=== PATIENT | male | born 1935 | race African-American/Black ===

== ENCOUNTER 2018-01-01 14:17 | Inpatient (IN) | payer OTHER ==
--- NOTE | 2018-01-01 15:39 | RAD REPORT ---
EXAM DESCRIPTION: CT - Head Brain Wo Cont - 01/01/2018 3:30 pm CLINICAL HISTORY: MENTAL STATUS CHANGE Drowsiness COMPARISON: Brain Wo Cont dated 11/02/2015 TECHNIQUE: All CT scans are performed using dose optimization technique as appropriate and may inclu de automated exposure control or mA/KV adjustment according to patient size. FINDINGS: No intracranial hemorrhage, hydrocephalus or extra-axial fluid collection.Moderate conflue nt T2/FLAIR hyperintensity in the periventricular and deep white matter is present compatible with ch ronic microvascular ischemic changes.No areas of brain edema or evidence of midline shift. The paranasal sinuses and mastoids are clear. The calvarium is intact. Vertebral arteries are calcifi ed. IMPRESSION: No acute intracranial abnormality.
[2018-01-01 16:03] LABS: Absolute Lymphocytes (CBC) 1.1 K/uL (0.7-4.9); Absolute Monocytes 0.5 K/uL (0.1-1.3); Absolute Neutrophil 2.1 K/uL (1.8-8.0); Basophils % 0.4 % (0-1.3); Eosinophils % 2.8 % (0-4.4); Hematocrit 35.9 % (39.6-49.0); Lymphocytes % 28.7 % (15.3-44.8); MCV 90.1 fL (80-100); MPV 10.5 fL (7.6-11.3); Monocytes % 12.1 % (3.3-12.3); RBC Red Blood Cell Count 3.98 M/uL (4.33-5.43)
[2018-01-01 16:11] LABS: Protime INR 1.21
[2018-01-01 16:28] LABS: ALT/SGPT 16 U/L (12-78); AST/SGOT 26 U/L (15-37); Albumin 3.7 g/dL (3.4-5.0); Alkaline Phosphatase 50 U/L (45-117); BUN Blood Urea Nitrogen 18 mg/dL (7-18); Bicarbonate 29 mmol/L (21-32); Bilirubin Direct 0.3 mg/dL (0-0.2); Bilirubin Total 0.7 mg/dL (0.2-1.0); CKMB Creatine Kinase MB < 1.0 ng/mL (0.3-3.6); Creatine Phosphokinase 105 U/L (39-308); Glucose Level 82 mg/dL (74-106); Lipase 257 U/L (73-393); Sodium Level 141 mmol/L (136-145); Troponin (Emerg Dept Use Only) 0.02 ng/mL (0.0-0.045)
[2018-01-01 16:49] LABS: Urine Bacteria LOADED /HPF (NONE SEEN); Urine RBC NONE SEEN /HPF (NONE SEEN)
[2018-01-01 16:50] LABS: Urine Culture Reflex Order REFLEXED
[2018-01-01] MEDS ORDERED: CEFTRIAXONE/SWI 1gm 1 GM/10 ML SYR ONE (16:54)
[2018-01-01] MEDS ORDERED: VANCOMYCIN 1 GM/250 ML BAG ONE (16:54)
[2018-01-01] MEDS ORDERED: NA CHLORIDE 0.9% 1,000 ML ONE ×2 (16:55→18:50)
--- NOTE | 2018-01-01 17:07 | RAD REPORT ---
EXAM DESCRIPTION: RAD - Chest Single View - 01/01/2018 4:48 pm CLINICAL HISTORY: Cough, altered mental status COMPARISON: None. TECHNIQUE: AP portable chest image was obtained 1600 hours . FINDINGS: Scattered granulomatous calcifications are present. No acute pneumonia seen. There is lina ed left hemidiaphragm elevation. This limits left base assessment. Heart size is normal. No evidence for mediastinal or hilar mass on portable imaging. Small masses could be obscured. Specifically, an A P window mass could be obscured given the left hemidiaphragm elevation. No measurable pleural effusio n and no pneumothorax. No acute bony abnormality seen. No acute aortic findings suspected. IMPRESSION: No focal lung parenchymal process. Left base assessment is limited due to marked left he midiaphragm elevation.
[2018-01-01 17:08] LABS: Urine Blood TRACE (NEG); Urine Glucose NEGATIVE (NEG); Urine Protein 1+ (NEG); Urine Specific Gravity 1.025 (1.005-1.030); Urine pH 6.5 (5.0-7.0)
--- NOTE | 2018-01-01 17:08 | ER ---
Nurse's Notes [facility] Name: Sachin Rios Age: 82 yrs Sex: Male : 1935 Arrival Date: 01/01/2018 Time: 14:22 Bed 26 Private MD: Diagnosis: Altered mental status, unspecified;Cystitis, unspecified without hematuria Presentation: 01/01 14:22 Presenting complaint: EMS states: family noticed patient became very confused on kr2 Monday about where he was and who was who. Today he did not recognize his son, they called his doctor and the doctor said to have him brought to the hospital because he made have had a stroke Monday. Transition of care: patient was not received from another setting of care. Onset of symptoms was December 30, 2017. Risk Assessment: Do you want to hurt yourself or someone else? Patient reports no desire to harm self or others. Initial Sepsis Screen: Does the patient meet any 2 criteria? No. Patient's initial sepsis screen is negative. Does the patient have a suspected source of infection? No. Patient's initial sepsis screen is negative. Care prior to arrival: None. 14:22 Method Of Arrival: EMS kr2 14:22 Acuity: VANITA 3 kr2 Triage Assessment: 14:26 General: Appears in no apparent distress. comfortable, slender, Behavior is calm, kr2 quiet. Pain: Denies pain. EENT: Oral mucosa is moist. Neuro: Level of Consciousness is awake, Oriented to Patient only responds to name but will not answer questions or follow commands. Cardiovascular: Patient's skin is warm and dry. Respiratory: Airway is patent Respiratory effort is even, unlabored, Respiratory pattern is regular, symmetrical. GI: Abdomen is flat, non-distended. Derm: Skin is intact, Skin is pink, warm \T\ dry. Historical: - Allergies: 14:26 No Known Allergies; kr2 - Home Meds: 14: Unable to obtain [Active]; kr2 - PMHx: 14: Diabetes; Cataracts; Hypertension; kr2 - PSHx: 14:26 cataract; kr2 - Immunization history:: Adult Immunizations unknown. - Social history:: Smoking status: unknown Patient/guardian denies using alcohol, street drugs, The patient lives with family. - Ebola Screening: : No symptoms or risks identified at this time. - Family history:: not pertinent. Screenin:30 Abuse screen: Denies threats or abuse. Denies injuries from another. Nutritional kr2 screening: No deficits noted. Tuberculosis screening: No symptoms or risk factors identified. Fall Risk Ambulatory Aid- Crutches/Cane/Walker (15 pts). Mental Status- Overestimates/Forgets Limitations (15 pts.). Assessment: 14:30 Reassessment: Patient appears in no apparent distress at this time. See triage kr2 assessment. 15:30 Reassessment: Patient appears in no apparent distress at this time. Patient and/or kr2 family updated on plan of care and expected duration. Pain level reassessed. Family at bedside. 16:30 Reassessment: Patient appears in no apparent distress at this time. Patient and/or kr2 family updated on plan of care and expected duration. Pain level reassessed. Cleaned patient of incontinence. Skin intact. 17:55 Reassessment: Patient appears in no apparent distress at this time. Patient and/or kr2 family updated on plan of care and expected duration. Pain level reassessed. Patient more alert, oriented only to person. Patient cleaned of incontinence. Patient denies pain at this time. 18:30 Reassessment: Patient appears in no apparent distress at this time. Patient and/or kr2 family updated on plan of care and expected duration. Pain level reassessed. Patient more alert, confused to surroundings, attempted to get out of bed, reoriented. Patient calmed and remained in bed. Family returned to bedside. 19:30 Reassessment: Patient appears in no apparent distress at this time. Patient and/or kr2 family updated on plan of care and expected duration. Pain level reassessed. Cleaned of incontinence Patient denies pain at this time. Vital Signs: 14:29 BP 184 / 81; Pulse 54; Resp 17; Temp 97.8; Pulse Ox 99% ; Pain 0/10; kr2 15:30 BP 188 / 80; Pulse 60; Resp 21; Pulse Ox 99% on R/A; kr2 16:55 Weight 70.31 kg; Height 5 ft. 7 in. (170.18 cm); kr2 17:31 BP 178 / 84; Pulse 97; Resp 20; Temp 97.9; Pulse Ox 99% on R/A; kr2 18:30 BP 195 / 80; Pulse 70; Resp 22; Pulse Ox 100% on R/A; kr2 19:57 BP 175 / 75; Pulse 68; Resp 19; Temp 98; Pulse Ox 100% on R/A; kr2 16:55 Body Mass Index 24.28 (70.31 kg, 170.18 cm) kr2 ED Course: 14:22 Patient arrived in ED. kr2 14:22 Anson Villanueva MD is Attending Physician. ma2 14:24 Triage completed. kr2 14:31 Arm band placed on right wrist. kr2 14:31 Patient has correct armband on for positive identification. Placed in gown. Bed in low kr2 position. Call light in reach. Side rails up X2. bus monitor on. Pulse ox on. NIBP on. Noise minimized. Warm blanket given. Head of bed elevated. 15:30 CT Head Brain wo Cont In Process Unspecified. EDMS 15:33 Brielle Mccullough, LUISA is Primary Nurse. kr2 15:45 First set of blood cultures drawn by me. Inserted saline lock: 20 gauge in right kr2 forearm, using aseptic technique. Blood collected. 16:00 Second set of blood cultures drawn by me. kr2 16:35 Straight cath inserted, using sterile technique, 15 Fr, specimen obtained and sent to kr2 lab Returned dark zoe urine, odor noted. 16:48 Chest Single View XRAY In Process Unspecified. EDMS 17:07 Letitia Tai MD is Hospitalizing Provider. ma2 20:01 No provider procedures requiring assistance completed. Patient admitted, IV remains in kr2 place. Administered Medications: 16:54 Drug: Rocephin 1 grams Route: IV; Rate: calculated rate; Site: right forearm; kr2 16:58 Follow up: Response: No adverse reaction; IV Status: Completed infusion kr2 16:59 Drug: vancoMYCIN 1 grams Route: IVPB; Infused Over: 2 hrs; Site: right forearm; kr2 19:59 Follow up: Response: No adverse reaction; IV Status: Completed infusion kr2 17:26 Drug: NS 0.9% (30 ml/kg) 30 ml/kg Route: IV; Rate: bolus; Site: right forearm; kr2 19:59 Follow up: Response: No adverse reaction; IV Status: Completed infusion kr2 Outcome: 17:08 Decision to Hospitalize by Provider. ma2 20:02 Admitted to Tele accompanied by tech, family with patient, via stretcher, room 425, kr2 with chart, Report called to Olga 20:02 Condition: stable 20:04 Patient left the ED. kr2 Signatures: Dispatcher [employer] Brielle Collins RN RN kr2 Anson Villanueva MD MD ma2 Corrections: (The following items were deleted from the chart) 17:55 17:31 Pulse 97bpm; Resp 20bpm; Pulse Ox 99% RA; kr2 kr2 17:57 17:31 BP 178 / 84; Pulse 97bpm; Resp 20bpm; Pulse Ox 99% RA; kr2 kr2
--- NOTE | 2018-01-01 17:08 | EDPHYS ---
Physician Documentation [facility] Name: Sachin Rios Age: 82 yrs Sex: Male : 1935 Arrival Date: 01/01/2018 Time: 14:22 Bed 26 Private MD: ED Physician Anson Villanueva HPI: 01/01 15:35 This 82 yrs old Black Male presents to ER via EMS with complaints of Altered Mental ma2 Status. 15:35 The patient presents with confusion, decreased mental status, decreased responsiveness, ma2 disorientation. Onset: The symptoms/episode began/occurred gradually, 2 day(s) ago. Possible causes: CVA or TIA, drug use, head injury, low blood sugar, sepsis. Associated signs and symptoms: Pertinent negatives: abdominal pain, agitation, blurred vision, chest pain, combativeness, dizziness, headache. Current symptoms: In the emergency department the patient's symptoms are unchanged from the initial presentation. The patient has not experienced similar symptoms in the past. Historical: - Allergies: 14:26 No Known Allergies; kr2 - Home Meds: 14:26 Unable to obtain [Active]; kr2 - PMHx: 14:26 Diabetes; Cataracts; Hypertension; kr2 - PSHx: 14:26 cataract; kr2 - Immunization history:: Adult Immunizations unknown. - Social history:: Smoking status: unknown Patient/guardian denies using alcohol, street drugs, The patient lives with family. - Ebola Screening: : No symptoms or risks identified at this time. - Family history:: not pertinent. ROS: 15:35 Unable to obtain ROS due to altered mental status. ma2 17:08 ENT: Negative for injury, pain, and discharge. ma2 Exam: 15:35 Constitutional: This is a well developed, well nourished patient who is awake, alert, ma2 and in no acute distress. Head/Face: Normocephalic, atraumatic. Eyes: Pupils equal round and reactive to light, extra-ocular motions intact. Lids and lashes normal. Conjunctiva and sclera are non-icteric and not injected. Cornea within normal limits. Periorbital areas with no swelling, redness, or edema. Neck: Trachea midline, no thyromegaly or masses palpated, and no cervical lymphadenopathy. Supple, full range of motion without nuchal rigidity, or vertebral point tenderness. No Meningismus. Chest/axilla: Normal chest wall appearance and motion. Nontender with no deformity. No lesions are appreciated. Cardiovascular: Regular rate and rhythm with a normal S1 and S2. No gallops, murmurs, or rubs. Normal PMI, no JVD. No pulse deficits. Respiratory: Lungs have equal breath sounds bilaterally, clear to auscultation and percussion. No rales, rhonchi or wheezes noted. No increased work of breathing, no retractions or nasal flaring. Abdomen/GI: Soft, non-tender, with normal bowel sounds. No distension or tympany. No guarding or rebound. No evidence of tenderness throughout. 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 Vital Signs: 14:29 BP 184 / 81; Pulse 54; Resp 17; Temp 97.8; Pulse Ox 99% ; Pain 0/10; kr2 15:30 BP 188 / 80; Pulse 60; Resp 21; Pulse Ox 99% on R/A; kr2 16:55 Weight 70.31 kg; Height 5 ft. 7 in. (170.18 cm); kr2 17:31 BP 178 / 84; Pulse 97; Resp 20; Temp 97.9; Pulse Ox 99% on R/A; kr2 18:30 BP 195 / 80; Pulse 70; Resp 22; Pulse Ox 100% on R/A; kr2 19:57 BP 175 / 75; Pulse 68; Resp 19; Temp 98; Pulse Ox 100% on R/A; kr2 16:55 Body Mass Index 24.28 (70.31 kg, 170.18 cm) kr2 MDM: 14:22 Patient medically screened. ma2 15:35 Differential Diagnosis: CVA, electrolyte abnormality, hypoglycemia, intracranial bleed, ma2 overdose, pneumonia, TIA, UTI, volume depletion. 17:04 Data reviewed: vital signs, nurses notes, diagnostic data from outside facility, lab ma2 test result(s), radiologic studies. Counseling: I had a detailed discussion with the patient and/or guardian regarding: the historical points, exam findings, and any diagnostic results supporting the discharge/admit diagnosis, the presence of at least one elevated blood pressure reading (>120/80) during this emergency department visit, the need for further work-up and treatment in the hospital. Response to treatment: the patient's symptoms have mildly improved after treatment. ED course: has UTI with delirium, CTH with no acute changes VS wnl, received abx and IVF . ED course: his PCP does not admit to this hospital. 01/01 15:11 Order name: Basic Metabolic Panel [facility] 01/01 15:11 Order name: Blood Culture Adult (2) [facility] 01/01 15:11 Order name: CBC with Diff [facility] 01/01 15:11 Order name: Ckmb [facility] 01/01 15:11 Order name: CPK [facility] 01/01 15:11 Order name: Lactate [facility] 01/01 15:11 Order name: LFT's; Complete Time: 16:33 [facility] 01/01 15:11 Order name: Lipase; Complete Time: 16:33 [facility] 01/01 15:11 Order name: Procalcitonin; Complete Time: 16:40 ma2 01/01 15:11 Order name: Protime (+inr); Complete Time: 16:17 ca2 01/01 15:11 Order name: Ptt, Activated; Complete Time: 16:17 [facility] 01/01 15:11 Order name: Troponin (emerg Dept Use Only); Complete Time: 16:33 ma2 01/01 15:11 Order name: Urine Microscopic Only; Complete Time: 17:04 ca2 01/01 15:11 Order name: Basic Metabolic Panel; Complete Time: 16:33 EDMS 01/01 15:11 Order name: Chest Single View XRAY; Complete Time: 17:11 ca2 01/01 15:11 Order name: Accucheck; Complete Time: 16:39 ca2 01/01 15:11 Order name: Cardiac monitoring; Complete Time: 16:39 ca2 01/01 15:11 Order name: EKG - Nurse/Tech; Complete Time: 16:39 ma2 01/01 15:11 Order name: Blood Culture [facility] [place] 01/01 15:11 Order name: CBC with Automated Diff; Complete Time: 16:07 EDMS 01/01 15:11 Order name: CKMB Creatine Kinase MB; Complete Time: 16:33 EDMS 01/01 15:11 Order name: Creatine Phosphokinase; Complete Time: 16:33 EDMS 01/01 15:11 Order name: Lactate; Complete Time: 16:33 EDMS 01/01 15:12 Order name: CT Head Brain wo Cont; Complete Time: 15:58 ma2 01/01 16:40 Order name: Urine Dipstick--Ancillary (enter results); Complete Time: 17:11 hb 01/01 16:52 Order name: Urine Culture EDMS 01/01 17:33 Order name: Diet Pureed; Complete Time: 17:33 kr2 01/01 15:11 Order name: IV Saline Lock - Large Bore; Complete Time: 16:39 ma2 01/01 15:11 Order name: Labs collected and sent; Complete Time: 16:39 ma2 01/01 15:11 Order name: O2 Per Protocol; Complete Time: 16:39 ma2 01/01 15:11 Order name: O2 Sat Monitoring; Complete Time: 16:38 ma2 01/01 15:11 Order name: Urine Dipstick-Ancillary (obtain specimen); Complete Time: 16:38 ma2 01/01 16:17 Order name: Straight Cath; Complete Time: 16:38 ma2 Administered Medications: 16:54 Drug: Rocephin 1 grams Route: IV; Rate: calculated rate; Site: right forearm; kr2 16:58 Follow up: Response: No adverse reaction; IV Status: Completed infusion kr2 16:59 Drug: vancoMYCIN 1 grams Route: IVPB; Infused Over: 2 hrs; Site: right forearm; kr2 19:59 Follow up: Response: No adverse reaction; IV Status: Completed infusion kr2 17:26 Drug: NS 0.9% (30 ml/kg) 30 ml/kg Route: IV; Rate: bolus; Site: right forearm; kr2 19:59 Follow up: Response: No adverse reaction; IV Status: Completed infusion kr2 Disposition: 01/01/18 17:08 Hospitalization ordered by Letitia Tai for Inpatient Admission. Preliminary diagnosis are Altered mental status, unspecified, Cystitis, unspecified without hematuria. - Bed requested for Telemetry/MedSurg (Inpatient). - Status is Inpatient Admission. kr2 - Condition is Guarded. - Problem is new. - Symptoms have improved. UTI on Admission? Yes Signatures: Dispatcher [employer] Dorene Smith RN RN dw Brielle Mccullough, LUISA RN kr2 Anson Villanueva MD MD ma2 Corrections: (The following items were deleted from the chart) 18:06 17:08 Hospitalization Ordered by Letitia Tai MD for Inpatient Admission. Preliminary dw diagnosis is Altered mental status, unspecified; Cystitis, unspecified without hematuria. Bed requested for Telemetry/MedSurg (Inpatient). Status is Inpatient Admission. Condition is Guarded. Problem is new. Symptoms have improved. UTI on Admission? Yes. ma2 20:04 18:06 01/01/2018 17:08 Hospitalization Ordered by Letitia Tai MD for Inpatient kr2 Admission. Preliminary diagnosis is Altered mental status, unspecified; Cystitis, unspecified without hematuria. Bed requested for Telemetry/MedSurg (Inpatient). Status is Inpatient Admission. Condition is Guarded. Problem is new. Symptoms have improved. UTI on Admission? Yes. dw
--- NOTE | 2018-01-01 17:35 | P.HP ---
Certification for Inpatient Patient admitted to: Inpatient With expected LOS: >2 Midnights Patient will require the following post-hospital care: None Practitioner: I am a practitioner with admitting privileges, knowledge of patient current condition, hospital course, and medical plan of care. Services: Services provided to patient in accordance with Admission requirements found in Title 42 Section 412.3 of the Code of Federal Regulations Patient History Date of Service: 01/01/18 [facility] Reason for admission: AMS History of Present Illness: 82 y/o M with H.o of HTN, DM, CVA presents to the ED with AMS. Family noticed patient having AMS since Monday where he forget where he was and did not recognize the son. It did not get any better and thus decided to come in to the ER. Pt has been also having Difficulty hearing since Monday. Denies having fever, chills, abd pain, no other associated symptoms. No similar Complains in the past. Called PCP office and advise to come to the ER to r.o stroke. In the ER was found to have UTI and thus admitted for AMS and UTI. Home medications list reviewed: Yes - Past Medical/Surgical History Has patient received pneumonia vaccine in the past: Yes Diabetic: Yes -: Diabetes -: HTN Past Surgical History: Unable to obtain - Family History Family History: Reviewed- Non-Contributory - Social History Smoking Status: Unknown if ever smoked Review of Systems 10-point ROS is otherwise unremarkable Physical Examination - Physical Exam General: Confused HEENT: Atraumatic, PERRLA, Mucous membr. moist/pink, EOMI, Sclerae nonicteric Neck: Supple, 2+ carotid pulse no bruit, No LAD, Without JVD or thyroid abnormality Respiratory: Clear to auscultation bilaterally, Normal air movement Cardiovascular: Regular rate/rhythm, Normal S1 S2 Gastrointestinal: Normal bowel sounds, No tenderness Musculoskeletal: No tenderness Integumentary: No rashes Neurological: Normal gait, Normal speech, Normal strength at 5/5 x4 extr, Normal tone, Normal affect Lymphatics: No axilla or inguinal lymphadenopathy - Studies Laboratory Data (last 24 hrs) 01/01/18 15:45: PT 14.3 H, INR 1.21, APTT 31.4 01/01/18 15:45: WBC 3.8 L, Hgb 12.0 L, Hct 35.9 L, Plt Count 121 L 01/01/18 15:45: Sodium 141, Potassium 4.0, BUN 18, Creatinine 0.90, Glucose 82, Total Bilirubin 0.7, AST 26, ALT 16, Alkaline Phosphatase 50, Lipase 257 Assessment and Plan - Problems (Diagnosis) (1) Altered mental status Current Visit: Yes Status: Acute Plan: AMS most likely 2.2 to Toxic Encephalopathy 2.2 to UTI -Head CT negative -Urine culture pending -Will also get MRI to R.O Acute Abnormality given the history of CVA in the past Qualifiers: Altered mental status type: disorientation Qualified Code(s): R41.0 - Disorientation, unspecified (2) UTI (urinary tract infection) Current Visit: Yes Status: Acute Plan: UA with UTI -Cullture pending -IV rocephin at this time -Will F.u with labs and culture in AM Qualifiers: Urinary tract infection type: acute cystitis Hematuria presence: without hematuria Qualified Code(s): N30.00 - Acute cystitis without hematuria (3) Diabetes Current Visit: Yes Status: Chronic Plan: ISS and ACHS BS check Qualifiers: Diabetes mellitus type: type 2 Diabetes mellitus terminal operations manager insulin use: without terminal operations manager use Diabetes mellitus complication status: without complication Qualified Code(s): E11.9 - Type 2 diabetes mellitus without complications (4) HTN (hypertension) Current Visit: Yes Status: Chronic Plan: Restart Home medication Qualifiers: Hypertension type: essential hypertension Qualified Code(s): I10 - Essential (primary) hypertension (5) H/O: CVA (cerebrovascular accident) Current Visit: Yes Status: Chronic Plan: Past H/o CVA with Small vessel changes -Will get MRI Discharge Plan: Other Plan to discharge in: 48 Hours - Advance Directives Does patient have a Living Will: No Does patient have a Durable POA for Healthcare: No - Code Status/Comfort Care Code Status Assessed: Yes Critical Care: No
[2018-01-01] MEDS ORDERED: ONDANSETRON 4 MG/2 ML VIAL IV PRN (20:05)
[2018-01-01] MEDS: INSULIN -REGULAR HUMAN 50 UNIT/0.5 ML ML SQ SCH (21:00)
[2018-01-02] MEDS: HYDRALAZINE HCL 20 MG/ML VIAL IV PRN ×2 (04:59→09:13)
[2018-01-02 05:47] LABS: Absolute Lymphocytes (CBC) 1.3 K/uL (0.7-4.9); Absolute Monocytes 0.6 K/uL (0.1-1.3); Absolute Neutrophil 2.3 K/uL (1.8-8.0); Basophils % 0.2 % (0-1.3); Eosinophils % 3.7 % (0-4.4); Hematocrit 33.6 % (39.6-49.0); Lymphocytes % 29.1 % (15.3-44.8); MCV 89.1 fL (80-100); MPV 10.7 fL (7.6-11.3); Monocytes % 14.2 % (3.3-12.3); RBC Red Blood Cell Count 3.77 M/uL (4.33-5.43)
[2018-01-02 06:51] LABS: Anisocytosis SLIGHT; Blood Morphology Comment NOTED (NOT SEEN); Burr Cells FEW; Hypochromasia 1+; Platelet Estimate ADEQ; Platelets, Giant NOTED; Urine White Blood Cell Casts OK
[2018-01-02] MEDS: INSULIN -REGULAR HUMAN 50 UNIT/0.5 ML ML SQ SCH ×4 (07:30→21:00)
[2018-01-02] MEDS: CEFTRIAXONE/SWI 1gm 1 GM/10 ML SYR IV SCH (08:15)
[2018-01-02 08:26] LABS: ALT/SGPT 14 U/L (12-78); AST/SGOT 23 U/L (15-37); Albumin 3.3 g/dL (3.4-5.0); Alkaline Phosphatase 47 U/L (45-117); BUN Blood Urea Nitrogen 14 mg/dL (7-18); Bicarbonate 24 mmol/L (21-32); Bilirubin Total 0.6 mg/dL (0.2-1.0); Glucose Level 82 mg/dL (74-106); Potassium 3.3 mmol/L (3.5-5.1); Protein, Total 7.2 g/dL (6.4-8.2); Sodium Level 137 mmol/L (136-145)
[2018-01-02] MEDS ORDERED: POTASSIUM CL SA 10 MEQ TAB PO ONE (08:57)
[2018-01-02] MEDS ORDERED: CEFTRIAXONE 1 GM/NS 50 ML 1 GM/50 ML BAG IV SCH (09:00)
[2018-01-02 09:18] LABS: Magnesium 1.9 mg/dL (1.8-2.4); Phosphorus 2.8 mg/dL (2.5-4.9)
[2018-01-02] MEDS: LORATADINE 10 MG TAB PO SCH (11:10)
[2018-01-02] MEDS: AMLODIPINE 5 MG TAB PO SCH (11:10)
[2018-01-02] MEDS: METOPROLOL XL 50 MG TAB PO SCH ×2 (11:11→21:15)
[2018-01-02] MEDS: ASPIRIN 81 MG CHEWABLE TABLET PO SCH (11:11)
[2018-01-02] MEDS: LOSARTAN POTASSIUM 50 MG TABLET PO SCH (11:11)
[2018-01-02 11:49] LABS: Troponin I 0.07 ng/mL (0.0-0.045)
--- NOTE | 2018-01-02 11:53 | P.PN ---
Subjective Date of Service: 01/02/18 Primary Care Provider: PCP in [place] - Dr Burgess Chief Complaint: AMS Patient seen and examined at bedside. Family at bedside. Case discussed with nursing staff. Patient still groggy, hard to arouse. Per daughter, patient has been independent prior to this admission. No changes in mentation since yesterday. Review of Systems 10-point ROS is otherwise unremarkable Physical Examination - Vital Signs Temperature: 98.7 F Blood Pressure: 146/66 Pulse: 71 Respirations: 20 Pulse Ox (%): 100 - Physical Exam General: Other (Hard to arouse. Response to heart sternal rub.) HEENT: Atraumatic Neck: Supple, JVD not distended Respiratory: Clear to auscultation bilaterally, Normal air movement Cardiovascular: No edema, Normal pulses Gastrointestinal: Normal bowel sounds, Soft and benign Musculoskeletal: No clubbing, No swelling - Studies Laboratory Data (last 24 hrs) 01/01/18 15:45: PT 14.3 H, INR 1.21, APTT 31.4 01/01/18 15:45: WBC 3.8 L, Hgb 12.0 L, Hct 35.9 L, Plt Count 121 L 01/01/18 15:45: Sodium 141, Potassium 4.0, BUN 18, Creatinine 0.90, Glucose 82, Total Bilirubin 0.7, AST 26, ALT 16, Alkaline Phosphatase 50, Lipase 257 Assessment And Plan - Current Problems (Diagnosis) (1) Altered mental status Onset Date: 01/02/18 Current Visit: Yes Status: Acute Plan: Plan: AMS most likely 2/2 to Toxic Encephalopathy 2/2 to UTI -Head CT negative -Urine culture pending -pending MRI to R.O Acute Abnormality given the history of CVA in the past Qualifiers: Altered mental status type: disorientation Qualified Code(s): R41.0 - Disorientation, unspecified (2) UTI (urinary tract infection) Onset Date: 01/02/18 Current Visit: Yes Status: Acute Plan: UA with UTI -Cullture still pending - continue IV rocephin at this time, will change according to cultures. Qualifiers: Urinary tract infection type: acute cystitis Hematuria presence: without hematuria Qualified Code(s): N30.00 - Acute cystitis without hematuria (3) Diabetes Onset Date: 01/02/18 Current Visit: Yes Status: Chronic Plan: ISS and ACHS BS check Qualifiers: Diabetes mellitus type: type 2 Diabetes mellitus moth exterminator insulin use: without moth exterminator use Diabetes mellitus complication status: without complication Qualified Code(s): E11.9 - Type 2 diabetes mellitus without complications (4) H/O: CVA (cerebrovascular accident) Current Visit: Yes Status: Chronic Plan: pending MRI to evaluate for acute changes. (5) HTN (hypertension) Onset Date: 01/02/18 Current Visit: Yes Status: Chronic Plan: Patient's blood pressure elevated this morning. This is likely because he has not been taking his home medications. IV hydralazine given 1 time. Home medications were restarted. Will monitor and make changes accordingly Qualifiers: Hypertension type: essential hypertension Qualified Code(s): I10 - Essential (primary) hypertension
[2018-01-02] MEDS ORDERED: LORazepam 2 MG/ML VIAL IV ONE (14:54)
[2018-01-02] MEDS ORDERED: LORazepam 2 MG/ML VIAL ONE (15:05)
--- NOTE | 2018-01-02 18:12 | RAD REPORT ---
EXAM DESCRIPTION: MRI - Brain Wo Cont - 01/02/2018 3:48 pm CLINICAL HISTORY: Alteration of awareness/confusion COMPARISON: January 01, [address] TECHNIQUE: Axial, sagittal, and coronal magnetic images of the brain were obtained. Contrast was not requested FINDINGS: 12 centimeter area of abnormal signal has developed within the right temporal lobe consist ent with an acute infarction. Cerebral atrophy is noted. . An extra-axial fluid collection is not present No other acute changes noted. The sinuses and mastoids are clear. IMPRESSION: 12 centimeter right temporal lobe infarct. Nurse Ruthann was notified 605 p.m. December [id number]
[2018-01-02] MEDS: VITAMIN D 400 UNIT TAB PO SCH (21:00)
[2018-01-03] MEDS ORDERED: NA CHLORIDE 0.9% 500 ML ONE (01:23)
[2018-01-03] MEDS: KCL 20 MEQ/100 mL IVPB 20 MEQ/100 ML BAG IV SCH ×2 (01:25→03:36)
[2018-01-03 04:24] LABS: Absolute Lymphocytes (CBC) 1.3 K/uL (0.7-4.9); Absolute Monocytes 0.7 K/uL (0.1-1.3); Absolute Neutrophil 2.4 K/uL (1.8-8.0); Basophils % 0.2 % (0-1.3); Eosinophils % 3.6 % (0-4.4); Hematocrit 34.4 % (39.6-49.0); Lymphocytes % 28.2 % (15.3-44.8); MCH 29.9 pg (27.0-35.0); MCV 88.8 fL (80-100); MPV 11.1 fL (7.6-11.3); Monocytes % 14.6 % (3.3-12.3); RBC Red Blood Cell Count 3.87 M/uL (4.33-5.43)
[2018-01-03] MEDS: HYDRALAZINE HCL 20 MG/ML VIAL IV PRN (04:30)
[2018-01-03 04:36] LABS: Albumin 3.1 g/dL (3.4-5.0); Bilirubin Total 0.6 mg/dL (0.2-1.0); Potassium 4.3 mmol/L (3.5-5.1); Protein, Total 7.1 g/dL (6.4-8.2)
[2018-01-03] MEDS: INSULIN -REGULAR HUMAN 50 UNIT/0.5 ML ML SQ SCH ×4 (07:30→21:00)
[2018-01-03] MEDS: POTASSIUM CL SA 10 MEQ TAB PO SCH (09:00)
[2018-01-03] MEDS: ISOSORBIDE MONO SR 60 MG TAB PO SCH (10:42)
[2018-01-03] MEDS: AMLODIPINE 5 MG TAB PO SCH (10:42)
[2018-01-03] MEDS: LOSARTAN POTASSIUM 50 MG TABLET PO SCH (10:42)
[2018-01-03] MEDS: METOPROLOL XL 50 MG TAB PO SCH ×2 (10:43→21:35)
[2018-01-03] MEDS: VITAMIN D 400 UNIT TAB PO SCH ×2 (10:43→21:36)
[2018-01-03] MEDS: ASPIRIN 81 MG CHEWABLE TABLET PO SCH (10:43)
[2018-01-03] MEDS: CEFTRIAXONE/SWI 1gm 1 GM/10 ML SYR IV SCH (10:43)
[2018-01-03] MEDS: LORATADINE 10 MG TAB PO SCH (10:44)
[2018-01-03 12:51] LABS: RPR Titer ND
[2018-01-03 13:34] LABS: Thyroid Stimulating Hormone 0.764 uIU/mL (0.360-3.740)
--- NOTE | 2018-01-03 17:44 | P.PN ---
Subjective Date of Service: 01/03/18 Primary Care Provider: PCP in [facility] - Dr Burgess Chief Complaint: AMS Patient seen and examined with RN. Chart reviewed. Case discussed with neurology and family at bedside. Patient is to be altered. This seemed to be hard of hearing however is not responding appropriately to the were will stabilize. Does talk in tangent and sometimes not able to be redirected. Review of Systems 10-point ROS is otherwise unremarkable Physical Examination - Vital Signs Temperature: 98 F Blood Pressure: 144/72 Pulse: 67 Respirations: 18 Pulse Ox (%): 100 - Physical Exam General: Alert, In no apparent distress, Oriented x1, Cooperative, Confused HEENT: Atraumatic, PERRLA, EOMI Neck: Supple, JVD not distended Respiratory: Clear to auscultation bilaterally, Normal air movement Cardiovascular: Regular rate/rhythm, Normal S1 S2 Gastrointestinal: Normal bowel sounds, No tenderness Musculoskeletal: No tenderness Integumentary: No rashes Neurological: Normal tone, Normal affect, Abnormal speech Lymphatics: No axilla or inguinal lymphadenopathy - Studies Microbiology Data (last 24 hrs): 01/01/18 16:35 Clean Catch Urine [place] Count - Final >100,000 CFU/ML. 01/01/18 16:35 Clean Catch Urine - Final Escherichia Coli Medications List Reviewed: Yes Assessment And Plan - Current Problems (Diagnosis) (1) Altered mental status Onset Date: 01/02/18 Current Visit: Yes Status: Acute Plan: AMS most likely 2.2 to Toxic Encephalopathy vs acute CVA -Currently AAOX1 and continues to be Confused Qualifiers: Altered mental status type: disorientation Qualified Code(s): R41.0 - Disorientation, unspecified (2) Acute CVA (cerebrovascular accident) Current Visit: Yes Status: Acute Plan: Acute right sided temporal lobe infarct. -neurology consulted awaiting recommendations at this time -head CT negative in the ER. MRI consistent with right-sided temporal lobe infarct -currently on aspirin and statin -PT speech OT consulted at this time -echocardiogram, neck MRA, brain MRI, carotid Dopplers order -lab work such as vitamin B12 RPR TSH and vitamin-D pending at this time along with lipid panel -case project management consultant for placement at this time -patient will benefit from inpatient rehab given his prior level of independent see before the stroke. Patient can participate in 3 hr of therapy with physical therapy, speech therapy and occupational therapy. (3) UTI (urinary tract infection) Onset Date: 01/02/18 Current Visit: Yes Status: Acute Plan: UA with UTI -Culture + for ECOLI -IV rocephin at this time since swallow evaluation pending at this time to Switch to PO Qualifiers: Urinary tract infection type: acute cystitis Hematuria presence: without hematuria Qualified Code(s): N30.00 - Acute cystitis without hematuria (4) Diabetes Onset Date: 01/02/18 Current Visit: Yes Status: Chronic Plan: ISS and ACHS BS check Qualifiers: Diabetes mellitus type: type 2 Diabetes mellitus petroleum terminal plant operator insulin use: without petroleum terminal plant operator use Diabetes mellitus complication status: without complication Qualified Code(s): E11.9 - Type 2 diabetes mellitus without complications (5) HTN (hypertension) Onset Date: 01/02/18 Current Visit: Yes Status: Chronic Plan: Restart Home medication Qualifiers: Hypertension type: essential hypertension Qualified Code(s): I10 - Essential (primary) hypertension (6) H/O: CVA (cerebrovascular accident) Current Visit: Yes Status: Chronic
[2018-01-03] MEDS ORDERED: LORazepam 2 MG/ML VIAL ONE ×3 (18:33→19:33)
--- NOTE | 2018-01-03 20:17 | RAD REPORT ---
EXAM DESCRIPTION: MRI - MRA Head Wo Cont - 01/03/2018 8:00 pm CLINICAL HISTORY: Acute right temporal CVA COMPARISON: MR brain January 02 TECHNIQUE: Axial and coronal 3D hwah-cz-[id number] image acquisition was performed. 3D rotational images were generated with source and reconstruction images reviewed. Horizontal and vertical axis rotation al views generated using MIP protocol. FINDINGS: Major venous sinuses are patent. Patient has a very significant motion degradation component to the examination. Vertebrobasilar vascu lature is quite tortuous. Occlusion or high-grade stenosis is not identifiable. Significant luminal n arrowing and atherosclerotic changes evident in the cavernous and petrous portion of the right hospitality internship al carotid artery. More moderate atherosclerotic changes present in the corresponding regions of the left internal carotid artery. Extensive atherosclerotic change and multi branch occlusion seen in the M2 and more peripheral branch es of the right middle cerebral artery including the area supplying the right temporal lobe. Patient has significant atherosclerotic change with advanced luminal narrowing in the distal M1 branch of the left middle cerebral artery. Patient has a very small right anterior cerebral artery along its entir e course. This is favored to be a normal developmental variant rather than right EC disease. The left PARK is much larger than usually seen supporting the developmental variant etiology. IMPRESSION: Substantially motion degraded examination showing multiple branch occlusions in the M2 a nd more peripheral branches of the right middle cerebral artery. This would correlate with the large area of temporal lobe infarction. Significant atherosclerotic changes and luminal narrowing in the distal right internal carotid artery . Significant atherosclerotic change and luminal narrowing in the left middle cerebral artery at the M1 - M2 junction.
--- NOTE | 2018-01-03 20:21 | RAD REPORT ---
EXAM DESCRIPTION: MRI - MRA Neck W/Wo Cont - 01/03/2018 8:00 pm COMPARISON: None. TECHNIQUE: Axial and coronal 3D hgwd-hu-spaldd image acquisition was performed. 3D rotational images were generated with source and reconstruction images reviewed. A 14 milliliter MultiHance contrast v olume was utilized. Horizontal and vertical axis rotational views generated using MIP protocol. FINDINGS: Aortic arch is 3 vessel with no origin stenosis. No stenosis at the vertebral artery origi ns. Innominate artery is quite tortuous. No stenosis, dissection or acute finding in either common ca rotid artery. Atherosclerotic changes in the left carotid bulb or relatively mild with minimal lumina l narrowing. More moderate atherosclerotic changes are present at the origin of the right carotid bul b and right external carotid artery. A 50% stenosis at the right bulb origin is seen. More distally the internal carotid arteries are tortuous but no dissection, stenosis or significant a therosclerotic changes are present to the skullbase level. Left vertebral artery is dominant. No dissection or stenosis seen. The right vertebral artery is quit e small and may terminate at the posterior inferior cerebellar artery. Distal right vertebral atheros clerotic disease is difficult to assess. IMPRESSION: Approximately 50% stenosis is present at the origin of the right carotid bulb. No other significant disease of the carotid vasculature.
[2018-01-03] MEDS: ATORVASTATIN 80 MG TAB PO SCH (21:35)
--- NOTE | 2018-01-03 22:15 | RAD REPORT ---
EXAM DESCRIPTION: US - CP - 01/03/2018 8:40 pm CLINICAL HISTORY: CVA COMPARISON: None. TECHNIQUE: Real-time sonographic evaluation of both carotid systems was performed. Aly scale and Do ppler interrogation were performed with waveform tracing bilaterally. FINDINGS: Normal high resistance waveforms are noted in both external carotid arteries. The common c arotid arteries and internal carotid arteries show normal low resistance waveforms. Calcified plaquing changes are present in the carotid bulbs. Plaquing changes are present at the orig in of the right external carotid artery. External carotid artery stenoses are not clinically signific ant. Plaquing changes near the origin of the left internal carotid artery do not cause significant jama nicho narrowing. Peak systolic and end diastolic velocity values and the ICA/CCA ratios are in the no n-hemodynamically significant range. Antegrade flow seen in both vertebral arteries. Velocity values and ratios were recorded and are retained in the patient's imaging records. IMPRESSION: Bilateral bulb and ICA calcified and noncalcified plaquing changes. Velocity values and ratios also indicate no significant degree of stenosis. The focal stenosis right carotid bulb origin seen on MRA imaging does not have a sonographic correlate.
[2018-01-03 22:19] LABS: RPR (Rapid Plasma Reagin) NON-REACT (NON-REACT)
--- NOTE | 2018-01-03 23:42 | CON ---
Consultation called because of altered mental status. History Of Present Illness: Mr. Rios is an 82-year-old, right-handed, patient wit h hypertension, dyslipidemia. The patient's family is at bedside. He is not very compliant with med ications. He was his usual self around Monday and is fully independent, ambulatory without any con fusion, disorientation, could communicate well, and he had sudden disorientation, could not speak, co uld not answer properly and did not make sense when he tried to communicate. This did not improve ov er the next day. The patient was not brought in, however, until the , that is about 2 days after onset of symptoms. At [facility], he had CT scan, showed no acute ischemic or hemorrhagic change. However, there was a moderate amount of confluent small-vessel ischemic disease seen in the white matter region. Subsequent brain MRI done on the and showed 12 cm right temporal lobe infarct. The patient did not have involvement of the motor or sensory strip. His urinalysis did show he was loaded with bacteria and 10-20 red blood cells, trace of blood, 1+ protein, 1+ ketones, otherwise blood work was essentially u nremarkable for any significant changes. His chest x-ray showed marked left hemidiaphragm elevation, but no acute lung parenchymal abnormalities. The patient's family said that best he would take aspi rin maybe 3-5 days out of the week and was poorly compliant with medications as indicated. Since his admission, his aphasia has not changed. Continues to have marked difficulty with any form of medica tion. Unable to express himself. Past Medical History: As indicated. Allergies: NO KNOWN DRUG ALLERGIES. Past Surgical History: Cataract surgery. Family History: Noncontributory. Social History: The patient lived independently at home previously. No alcohol, tobacco, or IV drug use. Review of Systems: Unable to perform as the patient does not have any meaningful communication verbally. Physical Examination: Vital Signs: Blood pressure 122/74, pulse 75, respiratory rate 18, temperature 98.5, oxygen saturati on 98%. Weight 144 pounds. Height 5 feet 7 inches. General: Mr. Rios is lying in bed, appears in no acute distress. HEENT: Appears normocephalic, atraumatic. Sclerae anicteric. Oropharynx is moist and pink. Neck: Supple. Chest: Clear. Heart: Regular. Extremities: Show no significant edema, cyanosis, or clubbing. Neurologic: The patient is alert. He does turn to his name, but unable to make meaningful communica tion. He did eventually shake the hand that was extended to him. He does not have a visual gaze pre ference. Does not have any facial asymmetry. He does react equally well to touch in the face bilate rally. His arms move equally well. Unable to get him to follow instructions to assess for strength of elevation. However, his arms do not fall once pulled out from under the covers. Unable to fully assess leg strength. Sensory examination is unable to be complete because of significant aphasia. H is coordination examination not able to complete. Gait unable to complete. NIH stroke scale of 6. Assessment: Mr. Rios is an 82-year-old patient with a large 12 cm right posterior temporal lobe st roke and significant aphasia. Aphasia appears to be global in both comprehension and expression. Do es not appear to have motor strip involvement. He was poorly compliant with medications. Has not be en taking aspirin regularly. Plan: 1.The patient should be on aspirin 81 mg and Plavix 75 mg daily. 2.High-dose statin such as Lipitor at bedtime. 3.For his urinary tract infection, he is on Rocephin and to continue. 4.Maintain some permissive hypertension during 3 to 5 days after the acute ischemic event. 5.Aggressive management of blood sugars. 6.The patient may be evaluated by Speech Therapy for swallowing and for beginning to have therapy fo r his aphasia. He may also be ambulated and determine if he requires more aggressive physical therapy as well. MARRY/BACILIO Voice ID: [id number] Report ID: [id number]
[2018-01-04 04:42] LABS: Absolute Lymphocytes (CBC) 1.5 K/uL (0.7-4.9); Absolute Monocytes 0.8 K/uL (0.1-1.3); Absolute Neutrophil 2.9 K/uL (1.8-8.0); Basophils % 0.4 % (0-1.3); Eosinophils % 5.7 % (0-4.4); Hematocrit 35.2 % (39.6-49.0); Lymphocytes % 27.6 % (15.3-44.8); MCH 29.8 pg (27.0-35.0); MCV 89.7 fL (80-100); MPV 11.7 fL (7.6-11.3); Monocytes % 13.7 % (3.3-12.3); RBC Red Blood Cell Count 3.92 M/uL (4.33-5.43)
[2018-01-04 04:54] LABS: Albumin 3.2 g/dL (3.4-5.0); Bilirubin Total 0.6 mg/dL (0.2-1.0); Potassium 3.8 mmol/L (3.5-5.1); Protein, Total 7.3 g/dL (6.4-8.2)
[2018-01-04] MEDS ORDERED: POTASSIUM CL SA 10 MEQ TAB PO ONE (04:57)
[2018-01-04] MEDS: INSULIN -REGULAR HUMAN 50 UNIT/0.5 ML ML SQ SCH ×4 (07:30→21:00)
[2018-01-04] MEDS ORDERED: KCL 20 MEQ/100 mL IVPB 20 MEQ/100 ML BAG IV SCH (08:00)
[2018-01-04] MEDS: VITAMIN D 400 UNIT TAB PO SCH ×3 (09:00→21:58)
[2018-01-04] MEDS: METOPROLOL XL 50 MG TAB PO SCH ×2 (09:00→21:58)
[2018-01-04] MEDS: LORATADINE 10 MG TAB PO SCH ×2 (09:00→16:30)
[2018-01-04] MEDS: ASPIRIN 81 MG CHEWABLE TABLET PO SCH ×2 (09:00→16:28)
[2018-01-04] MEDS: ISOSORBIDE MONO SR 60 MG TAB PO SCH ×2 (09:00→16:29)
[2018-01-04] MEDS: POTASSIUM CL SA 10 MEQ TAB PO SCH (09:00)
[2018-01-04] MEDS: AMLODIPINE 5 MG TAB PO SCH ×2 (09:00→16:27)
[2018-01-04] MEDS: LOSARTAN POTASSIUM 50 MG TABLET PO SCH ×2 (09:00→16:28)
[2018-01-04] MEDS: CEFTRIAXONE/SWI 1gm 1 GM/10 ML SYR IV SCH (09:44)
--- NOTE | 2018-01-04 13:02 | ECHO ---
HEIGHT: 5 ft 7 in WEIGHT: 144 lb 0 oz DATE OF STUDY: 01/04/[address]: 2-DIMENSIONAL: YES M.MODE: YES DOPPLER: YES COLOR FLOW: YES TDS: YES PORTABLE: NO DEFINITY: NO BUBBLE STUDY: NO DIAGNOSIS: STROKE CARDIAC HISTORY: CATHERIZATION: NO SURGERY: NO PROSTHETIC VALVE: NO PACEMAKER: NO MEASUREMENTS (cm) DIASTOLIC (NORMALS) SYSTOLIC (NORMALS) IVSd (0.6-1.2) LA Diam (1.9-4.0) LVEF % LVIDd (3.5-5.7) LVIDs (2.0-3.5) %FS % LVPWd (0.6-1.2) Ao Diam (2.0-3.7) 2 DIMENSIONAL ASSESSMENT: RIGHT ATRIUM: LEFT ATRIUM: RIGHT VENTRICLE: LEFT VENTRICLE: TRICUSPID VALVE: MITRAL VALVE: PULMONIC VALVE: AORTIC VALVE: PERICARDIAL EFFUSION: AORTIC ROOT: LEFT VENTRICULAR WALL MOTION: DOPPLER/COLOR FLOW: COMMENTS: TECHNICALLY DIFFICULT STUDY. GROSSLY NORMAL LEFT VENTRICULAR SIZE AND FUNCTION. NO EFFUSION. TECHNOLOGIST: VERONICA WILLOUGHBY RDCS
--- NOTE | 2018-01-04 15:45 | P.PN ---
Subjective Date of Service: 01/04/18 Primary Care Provider: PCP in [place] - Dr Burgess Chief Complaint: AMS Subjective: Other (Patient difficult to arouse this morning but was able to get up) Physical Examination - Vital Signs Temperature: 97.9 F Blood Pressure: 155/74 Pulse: 65 Respirations: 18 Pulse Ox (%): 100 - Physical Exam General: Alert, Cooperative, Other (Slight confusion. Hard to arouse but after sternal rub and speaking out loud patient woke up. Patient was more alert with family.) HEENT: Atraumatic Neck: Supple Respiratory: Clear to auscultation bilaterally, Normal air movement Cardiovascular: Normal pulses, Regular rate/rhythm Gastrointestinal: Normal bowel sounds, Soft and benign, Non-distended, No masses , No rebound, No guarding Musculoskeletal: No erythema, No tenderness, No warmth Integumentary: No tenderness/swelling, No erythema, No warmth, No cyanosis Neurological: Normal speech, Normal strength at 5/5 x4 extr, Normal tone, Normal affect - Studies Medications List Reviewed: Yes Assessment & Plan Discharge Plan: Other (Correction Placement) Plan to discharge in: 48 Hours Physician Review Additional Text: Impression: Altered mental status/aphasia secondary to toxic xuqztvhryftafv-CAY-Q coli and 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, significant arthrosclerotic changes and luminal narrowing in the distal right internal carotid artery and left middle cerebral artery Hypertension Diabetes mellitus type 2, oik-rmphwoc-ivkpfgreo Hyperlipidemia Plan: Altered mental status/aphasia secondary to toxic zmkiiwdfyawpjn-GZT-B coli and 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, significant arthrosclerotic changes and luminal narrowing in the distal right internal carotid artery and left middle cerebral artery: Continue with aspirin, Plavix, statin medication and folic acid. Patient on DVT prophylaxis. Will continue with blood pressure medication. Will adjust blood pressure medication accordingly. Will have physical therapy, occupational therapy and speech therapy assess patient. Spoke with patient and family in detail concerning findings. Will recommend skilled placement. Case discussed with Neurology as well. Patient does not appear to be a good candidate for inpatient rehab. Patient on Rocephin IV for UTI. Will adjust medication to oral medication tomorrow once the patient is able to take oral intake well. Encourage ambulation. Hypertension: Continue with medication. Will monitor and adjust appropriately. Diabetes mellitus type 2, hgr-ghwagqr-duldahbba: Will check A1c. Will continue with sliding scale Hyperlipidemia: Continue with statin medication. Time Spent Managing Pts Care (In Minutes): 55
[2018-01-04] MEDS: CLOPIDOGREL 75 MG TABLET PO SCH (16:27)
[2018-01-04] MEDS: FOLIC ACID 1 MG TABLET PO SCH (18:12)
[2018-01-04] MEDS: ATORVASTATIN 80 MG TAB PO SCH (21:58)
[2018-01-05 06:37] LABS: Absolute Lymphocytes (CBC) 1.5 K/uL (0.7-4.9); Absolute Monocytes 0.8 K/uL (0.1-1.3); Absolute Neutrophil 2.2 K/uL (1.8-8.0); Basophils % 0.4 % (0-1.3); Eosinophils % 5.9 % (0-4.4); Hematocrit 33.2 % (39.6-49.0); MCH 29.8 pg (27.0-35.0); MCV 89.1 fL (80-100); Monocytes % 15.9 % (3.3-12.3); RBC Red Blood Cell Count 3.73 M/uL (4.33-5.43)
[2018-01-05 06:50] LABS: BUN Blood Urea Nitrogen 17 mg/dL (7-18); Bicarbonate 27 mmol/L (21-32); Glucose Level 100 mg/dL (74-106); Magnesium 1.9 mg/dL (1.8-2.4); Potassium 3.7 mmol/L (3.5-5.1); Sodium Level 138 mmol/L (136-145)
[2018-01-05] MEDS: INSULIN -REGULAR HUMAN 50 UNIT/0.5 ML ML SQ SCH ×4 (07:30→21:00)
[2018-01-05 07:50] LABS: Anisocytosis 1+; Blood Morphology Comment NOTED (NOT SEEN); Platelet Estimate ADEQ; Platelets, Giant NOTED; Poikilocytosis 1+
[2018-01-05] MEDS: CEFTRIAXONE/SWI 1gm 1 GM/10 ML SYR IV SCH (09:00)
[2018-01-05] MEDS ORDERED: POTASSIUM CL SA 10 MEQ TAB PO ONE (09:00)
--- NOTE | 2018-01-05 09:43 | P.PN ---
Subjective Date of Service: 01/05/18 Primary Care Provider: PCP cory Burgess Chief Complaint: AMS Subjective: Other (Patient more alert today. Less confusion.) Physical Examination - Vital Signs Temperature: 97.9 F Blood Pressure: 156/81 Pulse: 72 Respirations: 18 Pulse Ox (%): 99 - Physical Exam General: Alert, In no apparent distress, Cooperative HEENT: Atraumatic Neck: Supple Respiratory: Clear to auscultation bilaterally, Normal air movement Cardiovascular: Normal pulses, Regular rate/rhythm Gastrointestinal: Normal bowel sounds, Soft and benign, Non-distended, No tenderness, No masses, No rebound, No guarding Musculoskeletal: No erythema, No tenderness, No warmth Integumentary: No tenderness/swelling, No erythema, No warmth, No cyanosis Neurological: Normal speech, Normal strength at 5/5 x4 extr, Normal tone, Normal affect - Studies Microbiology Data (last 24 hrs): 01/01/18 16:00 Blood - Blood Aerobic Blood Culture - Final Staph Hominis 01/01/18 16:00 Blood - Blood Gram Stain - Final 01/01/18 16:00 Blood - Blood Anaerobic Blood Culture - Final Staph Hominis 01/01/18 16:00 Blood - Blood Gram Stain - Final 01/01/18 15:45 Blood - Blood Aerobic Blood Culture - Final Staph Hominis 01/01/18 15:45 Blood - Blood Gram Stain - Final 01/01/18 15:45 Blood - Blood Anaerobic Blood Culture - Final Staph Hominis 01/01/18 15:45 Blood - Blood Gram Stain - Final Medications List Reviewed: Yes Assessment & Plan Discharge Plan: Other (Skilled placement facility) Plan to discharge in: 24 Hours (to 48 hours) Physician Review Additional Text: Impression: Altered mental status/aphasia secondary to toxic rqhpijhtgvbowe-GJO-oyswd culture positive for E coli/bacteremia-blood culture positive for Staph hominis and 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, significant arthrosclerotic changes and luminal narrowing in the distal right internal carotid artery and left middle cerebral artery Hypertension Diabetes mellitus type 2, ahi-giuwmif-typqgzqop Hyperlipidemia CAD Anemia Plan: Altered mental status/aphasia secondary to toxic guuwcojzeykpgv-OZS-yrujp culture positive for E coli/bacteremia-blood culture positive for Staph hominis and 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 Patient on DVT prophylaxis-Lovenox. Patient seems more alert today. Encourage ambulation with physical therapy and occupational therapy. Case discussed at length with patient and family yesterday. Family pursuing skilled placement for the patient. Spoke with social media content manager to help arrange this. Case discussed with Neurology yesterday as well. Neurology agrees with plan of care. Antibiotics adjusted due to urine culture positive for E coli and blood culture positive for Staph hominis. Will continue with Bactrim DS 1 pill twice daily for 7 days and Levaquin 500 mg daily for total of 14 days. Will monitor closely. Hypertension: Continue with medications-Norvasc 5 mg daily, losartan 100 mg 1 pill daily, and metoprolol 50 mg 1 pill twice daily. Will monitor and adjust appropriately. Diabetes mellitus type 2, xdq-onsybfu-skycdskfm: Will check A1c. Will continue with sliding scale Hyperlipidemia: Continue with Lipitor 80 mg daily CAD: Currently on Imdur. Anemia: Mild, likely delusional. Will monitor closely. Time Spent Managing Pts Care (In Minutes): 55
[2018-01-05] MEDS: POTASSIUM CL SA 10 MEQ TAB PO SCH (09:46)
[2018-01-05] MEDS: AMLODIPINE 5 MG TAB PO SCH (09:47)
[2018-01-05] MEDS: LORATADINE 10 MG TAB PO SCH (09:47)
[2018-01-05] MEDS: FOLIC ACID 1 MG TABLET PO SCH (09:47)
[2018-01-05] MEDS: VITAMIN D 400 UNIT TAB PO SCH ×2 (09:47→20:55)
[2018-01-05] MEDS: ASPIRIN 81 MG CHEWABLE TABLET PO SCH (09:47)
[2018-01-05] MEDS: CLOPIDOGREL 75 MG TABLET PO SCH (09:47)
[2018-01-05] MEDS: LOSARTAN POTASSIUM 50 MG TABLET PO SCH (09:47)
[2018-01-05] MEDS: METOPROLOL XL 50 MG TAB PO SCH ×2 (09:47→20:55)
[2018-01-05] MEDS: ISOSORBIDE MONO SR 60 MG TAB PO SCH (09:48)
[2018-01-05] MEDS: ACETAMINOPHEN 500 MG TAB PO PRN (09:51)
[2018-01-05] MEDS: levoFLOXacin 500 MG TAB PO SCH (10:05)
[2018-01-05] MEDS: SMZ./TMP. 800/160 MG TABLET PO SCH (20:55)
[2018-01-05] MEDS: ATORVASTATIN 80 MG TAB PO SCH (20:55)
[2018-01-06] MEDS: INSULIN -REGULAR HUMAN 50 UNIT/0.5 ML ML SQ SCH ×4 (07:30→21:00)
[2018-01-06] MEDS: VITAMIN D 400 UNIT TAB PO SCH ×2 (09:18→21:02)
[2018-01-06] MEDS: LORATADINE 10 MG TAB PO SCH (09:18)
[2018-01-06] MEDS: LOSARTAN POTASSIUM 50 MG TABLET PO SCH (09:18)
[2018-01-06] MEDS: ISOSORBIDE MONO SR 60 MG TAB PO SCH (09:18)
[2018-01-06] MEDS: METOPROLOL XL 50 MG TAB PO SCH ×2 (09:19→21:01)
[2018-01-06] MEDS: ASPIRIN 81 MG CHEWABLE TABLET PO SCH (09:19)
[2018-01-06] MEDS: POTASSIUM CL SA 10 MEQ TAB PO SCH (09:19)
[2018-01-06] MEDS: SMZ./TMP. 800/160 MG TABLET PO SCH ×2 (09:20→21:01)
[2018-01-06] MEDS: FOLIC ACID 1 MG TABLET PO SCH (09:20)
[2018-01-06] MEDS: CLOPIDOGREL 75 MG TABLET PO SCH (09:20)
[2018-01-06] MEDS: AMLODIPINE 5 MG TAB PO SCH (09:20)
[2018-01-06] MEDS: levoFLOXacin 500 MG TAB PO SCH (09:22)
--- NOTE | 2018-01-06 10:04 | P.PN ---
Subjective Date of Service: 01/06/18 Primary Care Provider: PCP cory Eduardo - Dr Luna Chief Complaint: AMS Subjective: Doing well Physical Examination - Vital Signs Temperature: 97.4 F Blood Pressure: 184/83 Pulse: 62 Respirations: 18 Pulse Ox (%): 100 - Physical Exam General: Alert, In no apparent distress, Cooperative HEENT: Atraumatic Neck: Supple Respiratory: Clear to auscultation bilaterally, Normal air movement Cardiovascular: Normal pulses, Regular rate/rhythm Gastrointestinal: Normal bowel sounds, Soft and benign, Non-distended, No tenderness, No masses, No rebound, No guarding Integumentary: No erythema, No warmth, No cyanosis Neurological: Normal speech, Normal strength at 5/5 x4 extr, Normal tone - Studies Microbiology Data (last 24 hrs): 01/01/18 16:00 Blood - Blood Aerobic Blood Culture - Final Staph Hominis 01/01/18 16:00 Blood - Blood Gram Stain - Final 01/01/18 16:00 Blood - Blood Anaerobic Blood Culture - Final Staph Hominis 01/01/18 16:00 Blood - Blood Gram Stain - Final 01/01/18 15:45 Blood - Blood Aerobic Blood Culture - Final Staph Hominis 01/01/18 15:45 Blood - Blood Gram Stain - Final 01/01/18 15:45 Blood - Blood Anaerobic Blood Culture - Final Staph Hominis 01/01/18 15:45 Blood - Blood Gram Stain - Final Medications List Reviewed: Yes Assessment & Plan Discharge Plan: Other (Skilled placement facility) Plan to discharge in: 48 Hours Physician Review Additional Text: Impression: Altered mental status/aphasia secondary to toxic mvmcsexzpyzcyf-CMS-ascku culture positive for E coli/bacteremia-blood culture positive for Staph hominis and 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, significant arthrosclerotic changes and luminal narrowing in the distal right internal carotid artery and left middle cerebral artery Hypertension Diabetes mellitus type 2, uvc-fhdwptt-bhsvzibvz, A1c 4.7 Hyperlipidemia CAD Anemia Plan: Altered mental status/aphasia secondary to toxic psfhdeitbhqisp-XKS-rxbed culture positive for E coli/bacteremia-blood culture positive for Staph hominis and 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 Patient on DVT prophylaxis-Lovenox. Patient seems more alert today and improving. Continue to encourage ambulation with physical therapy and occupational therapy. Patient awaiting skilled facility placement. Case discussed with Neurology as well. Neurology agrees with plan of care. Antibiotics have been adjusted due to urine culture positive for E coli and blood culture positive for Staph hominis. Will continue with Bactrim DS 1 pill twice daily for 7 days and Levaquin 500 mg daily for total of 14 days. Will monitor closely. Hypertension: Continue with medications-Norvasc 5 mg daily, losartan 100 mg 1 pill daily, and metoprolol 50 mg 1 pill twice daily. Will monitor and adjust appropriately. Diabetes mellitus type 2, ivr-nvdzktu-ymhwapbtv, A1c 4.7: Will continue with sliding scale Hyperlipidemia: Continue with Lipitor 80 mg daily CAD: Currently on Imdur. Anemia: Mild, likely delusional. Will monitor closely. Time Spent Managing Pts Care (In Minutes): 55
[2018-01-06] MEDS: ATORVASTATIN 80 MG TAB PO SCH (21:01)
[2018-01-07] MEDS: INSULIN -REGULAR HUMAN 50 UNIT/0.5 ML ML SQ SCH ×4 (07:30→21:00)
--- NOTE | 2018-01-07 08:35 | P.PN ---
Subjective Date of Service: 01/07/18 Primary Care Provider: PCP in [place] - Dr Luna Chief Complaint: AMS Subjective: Improving Physical Examination - Vital Signs Temperature: 98 F Blood Pressure: 149/71 Pulse: 73 Respirations: 18 Pulse Ox (%): 98 - Physical Exam General: Alert, In no apparent distress, Cooperative HEENT: Atraumatic Neck: Supple Respiratory: Clear to auscultation bilaterally, Normal air movement Cardiovascular: Normal pulses, Regular rate/rhythm Gastrointestinal: Normal bowel sounds, Soft and benign, Non-distended Musculoskeletal: No erythema, No tenderness, No warmth Integumentary: No erythema, No warmth, No cyanosis Neurological: Normal speech, Normal strength at 5/5 x4 extr, Normal tone - Studies Medications List Reviewed: Yes Assessment & Plan Discharge Plan: Other (care home facility) Plan to discharge in: 24 Hours Physician Review Additional Text: Impression: Altered mental status/aphasia secondary to toxic xyiwqzrasncskm-TNV-xbvun culture positive for E coli/bacteremia-blood culture positive for Staph hominis and 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, significant arthrosclerotic changes and luminal narrowing in the distal right internal carotid artery and left middle cerebral artery Hypertension Diabetes mellitus type 2, cqo-rnxnjbz-cpdvdnwzk, A1c 4.7 Hyperlipidemia CAD Anemia Plan: Altered mental status/aphasia secondary to toxic ncuidnbhxlddnu-LHN-vateb culture positive for E coli/bacteremia-blood culture positive for Staph hominis and 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 Patient on DVT prophylaxis-Lovenox. Patient continues to improve with physical therapy and occupational therapy. Patient awaiting skilled placement likely discharge tomorrow. Neurology agrees with plan of care. Antibiotics have been adjusted due to urine culture positive for E coli and blood culture positive for Staph hominis. Will continue with Bactrim DS 1 pill twice daily for 7 days and Levaquin 500 mg daily for total of 14 days. Will monitor closely. Hypertension: Continue with medications-Norvasc 5 mg daily, losartan 100 mg 1 pill daily, and metoprolol 50 mg 1 pill twice daily. Will monitor and adjust appropriately. Diabetes mellitus type 2, rog-ycdzhps-nxmllbenw, A1c 4.7: Will continue with sliding scale Hyperlipidemia: Continue with Lipitor 80 mg daily CAD: Currently on Imdur. Anemia: Mild, likely dilutional. Will monitor closely. Time Spent Managing Pts Care (In Minutes): 55
[2018-01-07] MEDS: LORATADINE 10 MG TAB PO SCH (09:47)
[2018-01-07] MEDS: VITAMIN D 400 UNIT TAB PO SCH ×2 (09:47→21:29)
[2018-01-07] MEDS: FOLIC ACID 1 MG TABLET PO SCH (09:47)
[2018-01-07] MEDS: LOSARTAN POTASSIUM 50 MG TABLET PO SCH (09:48)
[2018-01-07] MEDS: CLOPIDOGREL 75 MG TABLET PO SCH (09:48)
[2018-01-07] MEDS: METOPROLOL XL 50 MG TAB PO SCH ×2 (09:48→21:24)
[2018-01-07] MEDS: ISOSORBIDE MONO SR 60 MG TAB PO SCH (09:48)
[2018-01-07] MEDS: ASPIRIN 81 MG CHEWABLE TABLET PO SCH (09:49)
[2018-01-07] MEDS: AMLODIPINE 5 MG TAB PO SCH (09:49)
[2018-01-07] MEDS: SMZ./TMP. 800/160 MG TABLET PO SCH ×2 (09:49→21:29)
[2018-01-07] MEDS: POTASSIUM CL SA 10 MEQ TAB PO SCH (09:49)
[2018-01-07] MEDS: levoFLOXacin 500 MG TAB PO SCH (09:50)
[2018-01-07 12:30] LABS: Absolute Lymphocytes (CBC) 1.1 K/uL (0.7-4.9); Absolute Monocytes 0.7 K/uL (0.1-1.3); Absolute Neutrophil 2.7 K/uL (1.8-8.0); Basophils % 0.3 % (0-1.3); Eosinophils % 3.9 % (0-4.4); Hematocrit 35.6 % (39.6-49.0); Lymphocytes % 23.6 % (15.3-44.8); MCH 30.1 pg (27.0-35.0); MCV 88.9 fL (80-100); MPV 10.9 fL (7.6-11.3); Monocytes % 14.5 % (3.3-12.3); RBC Red Blood Cell Count 4.01 M/uL (4.33-5.43)
[2018-01-07 12:48] LABS: Magnesium 2.1 mg/dL (1.8-2.4); Potassium 3.6 mmol/L (3.5-5.1)
[2018-01-07] MEDS ORDERED: POTASSIUM CL SA 10 MEQ TAB PO ONE (14:00)
[2018-01-07] MEDS: ATORVASTATIN 80 MG TAB PO SCH (21:29)
[2018-01-08 04:59] LABS: Magnesium 2.2 mg/dL (1.8-2.4); Phosphorus 3.3 mg/dL (2.5-4.9); Potassium 3.8 mmol/L (3.5-5.1)
[2018-01-08] MEDS: HYDRALAZINE HCL 20 MG/ML VIAL IV PRN (05:53)
[2018-01-08] MEDS: INSULIN -REGULAR HUMAN 50 UNIT/0.5 ML ML SQ SCH ×4 (07:30→21:00)
[2018-01-08] MEDS ORDERED: POTASSIUM CL SA 10 MEQ TAB PO ONE (09:00)
[2018-01-08] MEDS: POTASSIUM CL SA 10 MEQ TAB PO SCH (09:53)
[2018-01-08] MEDS: levoFLOXacin 500 MG TAB PO SCH (09:54)
[2018-01-08] MEDS: CLOPIDOGREL 75 MG TABLET PO SCH (09:54)
[2018-01-08] MEDS: AMLODIPINE 5 MG TAB PO SCH (09:54)
[2018-01-08] MEDS: SMZ./TMP. 800/160 MG TABLET PO SCH ×2 (09:54→21:44)
[2018-01-08] MEDS: FOLIC ACID 1 MG TABLET PO SCH (09:54)
[2018-01-08] MEDS: METOPROLOL XL 50 MG TAB PO SCH ×2 (09:54→21:44)
[2018-01-08] MEDS: LOSARTAN POTASSIUM 50 MG TABLET PO SCH (09:54)
[2018-01-08] MEDS: LORATADINE 10 MG TAB PO SCH (09:55)
[2018-01-08] MEDS: ISOSORBIDE MONO SR 60 MG TAB PO SCH (09:55)
[2018-01-08] MEDS: ASPIRIN 81 MG CHEWABLE TABLET PO SCH (09:55)
[2018-01-08] MEDS: VITAMIN D 400 UNIT TAB PO SCH ×2 (09:55→21:44)
--- NOTE | 2018-01-08 16:13 | P.PN ---
Subjective Date of Service: 01/08/18 Primary Care Provider: PCP in [place] - Dr Luna Chief Complaint: AMS Subjective: Other (Slowly improving.) Physical Examination - Vital Signs Temperature: 98.2 F Blood Pressure: 110/57 Pulse: 86 Respirations: 18 Pulse Ox (%): 98 - Physical Exam General: Alert, Cooperative HEENT: Atraumatic Neck: Supple Respiratory: Clear to auscultation bilaterally, Normal air movement Cardiovascular: Normal pulses, Regular rate/rhythm Gastrointestinal: Normal bowel sounds, Soft and benign, Non-distended, No masses , No rebound, No guarding Integumentary: No erythema, No warmth, No cyanosis Neurological: Normal strength at 5/5 x4 extr, Other (Patient alert and awake with arousal) - Studies Medications List Reviewed: Yes Assessment & Plan Discharge Plan: Other (snf facility) Plan to discharge in: 24 Hours Physician Review Additional Text: Impression: Altered mental status/aphasia secondary to toxic okgdyriwxgmyyy-MBO-hathx culture positive for E coli/bacteremia-blood culture positive for Staph hominis and 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, significant arthrosclerotic changes and luminal narrowing in the distal right internal carotid artery and left middle cerebral artery Hypertension Diabetes mellitus type 2, ebr-koojuro-ivzvpjgqf, A1c 4.7 Hyperlipidemia CAD Anemia Plan: Altered mental status/aphasia secondary to toxic ejuiekpaasmwvl-LBY-kzrnk culture positive for E coli/bacteremia-blood culture positive for Staph hominis and 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 Patient on DVT prophylaxis-Lovenox. Encourage ambulation with physical therapy and occupational therapy. Patient needs to be more alert and requires arousal. Family has helped with this. Currently awaiting approval for assisted facility placement. Neurology agrees with plan of care. Antibiotics have been adjusted due to urine culture positive for E coli and blood culture positive for Staph hominis. Will continue with Bactrim DS 1 pill twice daily for total of 7 days and Levaquin 500 mg daily for total of 14 days. Will monitor closely. Hypertension: Continue with medications-Norvasc 5 mg daily, losartan 100 mg 1 pill daily, and metoprolol 50 mg 1 pill twice daily. Will maintain blood pressure around 150-160 systolic. May need to hold medication. Adjustment in medication may be required at discharge. Will monitor and adjust appropriately. Diabetes mellitus type 2, shh-ykpecpd-qjdsrsviz, A1c 4.7: Will continue with sliding scale. Patient may not require any medication at discharge. Hyperlipidemia: Continue with Lipitor 80 mg daily CAD: Currently on Imdur. Anemia: Mild, likely dilutional. Will monitor closely. I will turn the service over to Dr. Tai tomorrow. I will go over the plan of care with her. Time Spent Managing Pts Care (In Minutes): 55
[2018-01-08] MEDS: ATORVASTATIN 80 MG TAB PO SCH (21:44)
[2018-01-08] MEDS: ENSURE ENLIVE 237 ML CAN PO SCH (21:46)
[2018-01-09 06:08] LABS: Potassium 4.2 mmol/L (3.5-5.1)
[2018-01-09] MEDS: INSULIN -REGULAR HUMAN 50 UNIT/0.5 ML ML SQ SCH ×4 (07:30→21:00)
[2018-01-09] MEDS: LOSARTAN POTASSIUM 50 MG TABLET PO SCH (09:00)
[2018-01-09] MEDS: levoFLOXacin 500 MG TAB PO SCH (09:29)
[2018-01-09] MEDS: AMLODIPINE 5 MG TAB PO SCH (09:29)
[2018-01-09] MEDS: LORATADINE 10 MG TAB PO SCH (09:29)
[2018-01-09] MEDS: METOPROLOL XL 50 MG TAB PO SCH ×2 (09:29→21:00)
[2018-01-09] MEDS: CLOPIDOGREL 75 MG TABLET PO SCH (09:29)
[2018-01-09] MEDS: POTASSIUM CL SA 10 MEQ TAB PO SCH (09:31)
[2018-01-09] MEDS: ISOSORBIDE MONO SR 60 MG TAB PO SCH (09:31)
[2018-01-09] MEDS: SMZ./TMP. 800/160 MG TABLET PO SCH ×3 (09:31→21:00)
[2018-01-09] MEDS: VITAMIN D 400 UNIT TAB PO SCH ×3 (09:32→21:00)
[2018-01-09] MEDS: ENSURE ENLIVE 237 ML CAN PO SCH ×3 (09:32→21:00)
[2018-01-09] MEDS: FOLIC ACID 1 MG TABLET PO SCH (09:32)
[2018-01-09] MEDS: ASPIRIN 81 MG CHEWABLE TABLET PO SCH (09:32)
--- NOTE | 2018-01-09 14:35 | P.PN ---
Subjective Date of Service: 01/09/18 Primary Care Provider: PCP in [facility] - Dr Luna Chief Complaint: AMS Patient seen and examined with RN. Chart reviewed. Case discussed with neurology and family at bedside. Doing okay overall. Does have incomprehensible speech at this time. However doing well overall Review of Systems 10-point ROS is otherwise unremarkable Physical Examination - Vital Signs Temperature: 97.7 F Blood Pressure: 106/58 Pulse: 76 Respirations: 18 Pulse Ox (%): 97 - Physical Exam General: Alert, In no apparent distress, Oriented x1, Demented HEENT: Atraumatic, PERRLA, EOMI Neck: Supple, JVD not distended Respiratory: Clear to auscultation bilaterally, Normal air movement Cardiovascular: Regular rate/rhythm, Normal S1 S2 Gastrointestinal: Normal bowel sounds, No tenderness Musculoskeletal: No tenderness Integumentary: No rashes Neurological: Normal tone, Normal affect, Abnormal speech Lymphatics: No axilla or inguinal lymphadenopathy - Studies Medications List Reviewed: Yes Assessment And Plan - Current Problems (Diagnosis) (1) Altered mental status Onset Date: 01/02/18 Current Visit: Yes Status: Acute Plan: AMS most likely 2.2 to Toxic Encephalopathy vs acute CVA -Currently AAOX 2. -patient at his new baseline at this time. -pending placement at [facility] for this time Qualifiers: Altered mental status type: disorientation Qualified Code(s): R41.0 - Disorientation, unspecified (2) Acute CVA (cerebrovascular accident) Current Visit: Yes Status: Acute Plan: Acute right sided temporal lobe infarct. -neurology consulted appreciated recommendations this time -head CT negative in the ER. MRI consistent with right-sided temporal lobe infarct -currently on aspirin, Plavix and statin -PT speech OT consulted at this time -currently pending placement at [facility] at this (3) UTI (urinary tract infection) Onset Date: 01/02/18 Current Visit: Yes Status: Acute Plan: UA with UTI -Culture + for ECOLI -on Bactrim DS at this time Qualifiers: Urinary tract infection type: acute cystitis Hematuria presence: without hematuria Qualified Code(s): N30.00 - Acute cystitis without hematuria (4) Bacteremia Current Visit: Yes Status: Acute Plan: Blood culture positive for Staph hominis -On oral Levaquin at this time (5) Diabetes Onset Date: 01/02/18 Current Visit: Yes Status: Chronic Plan: ISS and ACHS BS check Qualifiers: Diabetes mellitus type: type 2 Diabetes mellitus mcc insulin use: without mcc use Diabetes mellitus complication status: without complication Qualified Code(s): E11.9 - Type 2 diabetes mellitus without complications (6) HTN (hypertension) Onset Date: 01/02/18 Current Visit: Yes Status: Chronic Plan: Restart Home medication Qualifiers: Hypertension type: essential hypertension Qualified Code(s): I10 - Essential (primary) hypertension (7) H/O: CVA (cerebrovascular accident) Current Visit: Yes Status: Chronic - Plan Patient currently pending placement at this time. Will follow up with insurance regarding [facility] approval. Discharge Plan: [facility] Plan to discharge in: 48 Hours - Code Status/Comfort Care Code Status Assessed: Yes Critical Care: No
[2018-01-09] MEDS: ATORVASTATIN 80 MG TAB PO SCH ×2 (21:00)
[2018-01-10] MEDS: INSULIN -REGULAR HUMAN 50 UNIT/0.5 ML ML SQ SCH ×4 (07:30→21:00)
[2018-01-10] MEDS: ENSURE ENLIVE 237 ML CAN PO SCH ×2 (09:00→21:00)
[2018-01-10] MEDS: VITAMIN D 400 UNIT TAB PO SCH ×2 (09:00→21:00)
[2018-01-10] MEDS: LORATADINE 10 MG TAB PO SCH (09:35)
[2018-01-10] MEDS: FOLIC ACID 1 MG TABLET PO SCH (09:35)
[2018-01-10] MEDS: SMZ./TMP. 800/160 MG TABLET PO SCH (09:36)
[2018-01-10] MEDS: METOPROLOL XL 50 MG TAB PO SCH ×2 (09:36→21:00)
[2018-01-10] MEDS: AMLODIPINE 5 MG TAB PO SCH (09:36)
[2018-01-10] MEDS: CLOPIDOGREL 75 MG TABLET PO SCH (09:36)
[2018-01-10] MEDS: ASPIRIN 81 MG CHEWABLE TABLET PO SCH (09:36)
[2018-01-10] MEDS: levoFLOXacin 500 MG TAB PO SCH (09:36)
[2018-01-10] MEDS: POTASSIUM CL SA 10 MEQ TAB PO SCH (09:37)
[2018-01-10] MEDS: ISOSORBIDE MONO SR 60 MG TAB PO SCH (09:37)
[2018-01-10] MEDS: LOSARTAN POTASSIUM 50 MG TABLET PO SCH (09:37)
--- NOTE | 2018-01-10 12:07 | P.PN ---
Subjective Date of Service: 01/10/18 Primary Care Provider: PCP in [facility] - Dr Luna Chief Complaint: AMS Patient seen and examined with RN. Chart reviewed. Case discussed with neurology and family at bedside. Doing okay overall. Does have incomprehensible speech at this time. Confused at time. Not able to follow commands. denied SNF. Family deciding on Placement Review of Systems 10-point ROS is otherwise unremarkable Physical Examination - Vital Signs Temperature: 98.3 F Blood Pressure: 168/80 Pulse: 71 Respirations: 18 Pulse Ox (%): 96 - Physical Exam General: Alert, In no apparent distress, Confused HEENT: Atraumatic, PERRLA, EOMI Neck: Supple, JVD not distended Respiratory: Clear to auscultation bilaterally, Normal air movement Cardiovascular: Regular rate/rhythm, Normal S1 S2 Gastrointestinal: Normal bowel sounds, No tenderness Musculoskeletal: No tenderness Integumentary: No rashes Neurological: Normal speech, Normal tone, Normal affect Lymphatics: No axilla or inguinal lymphadenopathy - Studies Medications List Reviewed: Yes Assessment And Plan - Current Problems (Diagnosis) (1) Altered mental status Onset Date: 01/02/18 Current Visit: Yes Status: Acute Plan: AMS most likely 2.2 to Toxic Encephalopathy vs acute CVA -Currently AAOX 2 but with confusion and not able to follow commands -patient at his new baseline at this time. -pending placement at this time -Denied SNF Qualifiers: Altered mental status type: disorientation Qualified Code(s): R41.0 - Disorientation, unspecified (2) Acute CVA (cerebrovascular accident) Current Visit: Yes Status: Acute Plan: Acute right sided temporal lobe infarct. -neurology consulted appreciated recommendations this time -head CT negative in the ER. MRI consistent with right-sided temporal lobe infarct -currently on aspirin, Plavix and statin -PT speech OT consulted at this time -currently pending placement (3) UTI (urinary tract infection) Onset Date: 01/02/18 Current Visit: Yes Status: Acute Plan: UA with UTI -Culture + for ECOLI -on Bactrim DS at this time Qualifiers: Urinary tract infection type: acute cystitis Hematuria presence: without hematuria Qualified Code(s): N30.00 - Acute cystitis without hematuria (4) Bacteremia Current Visit: Yes Status: Acute Plan: Blood culture positive for Staph hominis -On oral Levaquin at this time (5) Diabetes Onset Date: 01/02/18 Current Visit: Yes Status: Chronic Plan: ISS and ACHS BS check Qualifiers: Diabetes mellitus type: type 2 Diabetes mellitus nursing home insulin use: without nursing home use Diabetes mellitus complication status: without complication Qualified Code(s): E11.9 - Type 2 diabetes mellitus without complications (6) HTN (hypertension) Onset Date: 01/02/18 Current Visit: Yes Status: Chronic Plan: Restart Home medication Qualifiers: Hypertension type: essential hypertension Qualified Code(s): I10 - Essential (primary) hypertension (7) H/O: CVA (cerebrovascular accident) Current Visit: Yes Status: Chronic - Plan Patient currently pending placement at this time. Denied for SNF, family deciding on Placement at this time. Discharge Plan: Home Plan to discharge in: 48 Hours - Code Status/Comfort Care Code Status Assessed: Yes Critical Care: No
[2018-01-10] MEDS: ATORVASTATIN 80 MG TAB PO SCH (21:00)
[2018-01-11] MEDS: ATORVASTATIN 80 MG TAB PO SCH ×2 (00:33→21:29)
[2018-01-11] MEDS: SMZ./TMP. 800/160 MG TABLET PO SCH ×2 (00:33→09:00)
[2018-01-11] MEDS: INSULIN -REGULAR HUMAN 50 UNIT/0.5 ML ML SQ SCH ×4 (07:30→21:00)
[2018-01-11] MEDS: HYDRALAZINE HCL 20 MG/ML VIAL IV PRN (08:34)
[2018-01-11] MEDS: CLOPIDOGREL 75 MG TABLET PO SCH (09:00)
[2018-01-11] MEDS: VITAMIN D 400 UNIT TAB PO SCH ×2 (09:00→21:29)
[2018-01-11] MEDS: FOLIC ACID 1 MG TABLET PO SCH ×2 (09:00→17:46)
[2018-01-11] MEDS: POTASSIUM CL SA 10 MEQ TAB PO SCH ×2 (09:00→17:46)
[2018-01-11] MEDS: METOPROLOL XL 50 MG TAB PO SCH ×2 (09:00→21:00)
[2018-01-11] MEDS: ENSURE ENLIVE 237 ML CAN PO SCH ×2 (09:00→21:00)
[2018-01-11] MEDS: AMLODIPINE 5 MG TAB PO SCH ×2 (09:00→17:45)
[2018-01-11] MEDS: LOSARTAN POTASSIUM 50 MG TABLET PO SCH ×2 (09:00→17:45)
[2018-01-11] MEDS: levoFLOXacin 500 MG TAB PO SCH ×2 (09:00→17:44)
[2018-01-11] MEDS: ASPIRIN 81 MG CHEWABLE TABLET PO SCH ×2 (09:00→17:45)
[2018-01-11] MEDS: ISOSORBIDE MONO SR 60 MG TAB PO SCH ×2 (09:00→17:47)
[2018-01-11] MEDS: LORATADINE 10 MG TAB PO SCH ×2 (09:00→17:46)
--- NOTE | 2018-01-11 10:01 | RAD REPORT ---
EXAM DESCRIPTION: CT - Ct Stroke Brain Wo Cont - 01/11/2018 9:50 am CLINICAL HISTORY: R/O stroke CVA COMPARISON: Head Brain Wo Cont dated 01/01/2018; MRA Neck W/Wo Cont dated 01/03/2018; Brain Wo Cont dated 01/02/2018; MRA Head Wo Cont dated 01/03/2018 TECHNIQUE: All CT scans are performed using dose optimization technique as appropriate and may inclu de automated exposure control or mA/KV adjustment according to patient size. FINDINGS: Diminished density is noted in the right temporal lobe compatible with known CVA in this r egion. No hemorrhagic transformation seen.No acute bleed, hydrocephalus or midline shift. Gliosis is noted in the posterior fossa compatible with remote infarction. Prominent generalized brain atrophy i s present with prominent periventricular and deep white matter chronic microvascular ischemic changes . The paranasal sinuses and mastoids are clear. The calvarium is intact. IMPRESSION: No hemorrhagic transformation of right-sided temporal lobe CVA seen. No acute intracran ial finding is demonstrated. If there is continued clinical concern for CVA, MR imaging of the brain would be recommended.
[2018-01-11] MEDS ORDERED: NA CHLORIDE 0.9% 500 ML IV ONE (10:26)
--- NOTE | 2018-01-11 11:55 | RAD REPORT ---
EXAM DESCRIPTION: MRI - Brain Wo Cont - 01/11/2018 11:18 am CLINICAL HISTORY: Acute/subacute infarction COMPARISON: CT head January 11, MRI January 02 TECHNIQUE: Sagittal T1-weighted images were obtained along with axial PD, heavily T2-weighted and T2 -FLAIR images. Axial DWI and ADC mapping sequences were also obtained along with coronal heavily T2-w eighted images. FINDINGS: The exam has significant motion degradation artifact throughout multiple sequences. No intracranial hemorrhage has developed. Diffusion-weighted imaging shows continued signal abnormali ty in the lateral right temporal and lateral right occipital lobe. This matches the large infarction seen back on January 02. Signal changes between the current and prior examination are consistent wi th the expected aging over the last 9 days. No new or enlarging mass effect or edema. There is no mid line shift. No extra-axial fluid collections. Diffusion-weighted imaging shows abnormal signal in the inferior aspect of the left occipital lobe. Review of the prior MRI study showed signal abnormality in this region that can be seen retrospectively. Prior examination has substantial motion degradation through this region. Underlying atrophy and chronic ischemic changes are noted. Ventriculomegaly noted. No new globe or orbital content abnormality. Mastoid air cells and paranasal sinuses are clear. IMPRESSION: The large known right temporal occipital CVA has shown the expected aging over the 9 day s since January 02 imaging. Small acute/ subacute infarction in the inferior left occipital lobe unchanged from January 02 study. The extensive motion artifact January 02 precluded prospective visualization of this finding. No new area of infarction seen. No hemorrhage has developed. There is no new or enlarging mass effect or edema.
--- NOTE | 2018-01-11 12:47 | P.PN ---
Subjective Date of Service: 01/11/18 Primary Care Provider: PCP in [facility] - Dr Luna Chief Complaint: AMS Patient seen and examined with RN. Chart reviewed. Case discussed with neurology and family at bedside. Overnight patient has been doing well. This morning however patient has been having difficulty swallowing. She also appears to be having right-sided drooping more than before. Review of Systems 10-point ROS is otherwise unremarkable Physical Examination - Vital Signs Temperature: 98.2 F Blood Pressure: 136/78 Pulse: 94 Respirations: 18 Pulse Ox (%): 98 - Physical Exam General: In no apparent distress, Confused HEENT: Atraumatic, PERRLA, EOMI Neck: Supple, JVD not distended Respiratory: Normal air movement, Expiratory wheezes, Inspiratory wheezes Cardiovascular: Regular rate/rhythm, Normal S1 S2 Gastrointestinal: Normal bowel sounds, No tenderness Musculoskeletal: No tenderness Integumentary: No rashes Neurological: Abnormal speech, Abnormal strength, Abnormal tone, Abnormal affect Lymphatics: No axilla or inguinal lymphadenopathy - Studies Medications List Reviewed: Yes Assessment And Plan - Current Problems (Diagnosis) (1) Altered mental status Onset Date: 01/02/18 Current Visit: Yes Status: Acute Plan: AMS most likely 2.2 to Toxic Encephalopathy vs acute CVA -Currently AAOX 1 but with confusion and not able to follow commands. -Worse today with Inability to swallow and Drooling on the right side of the face Qualifiers: Altered mental status type: disorientation Qualified Code(s): R41.0 - Disorientation, unspecified (2) Acute CVA (cerebrovascular accident) Current Visit: Yes Status: Acute Plan: Acute right sided temporal lobe infarct. -neurology consulted appreciated recommendations this time -head CT negative in the ER. MRI consistent with right-sided temporal lobe infarct -currently on aspirin, Plavix and statin -PT speech OT consulted at this time -Head CT and MRI repeated today due to change in mentation and new neurological symptoms (3) UTI (urinary tract infection) Onset Date: 01/02/18 Current Visit: Yes Status: Acute Plan: UA with UTI -Culture + for ECOLI -on Bactrim DS at this time Qualifiers: Urinary tract infection type: acute cystitis Hematuria presence: without hematuria Qualified Code(s): N30.00 - Acute cystitis without hematuria (4) Bacteremia Current Visit: Yes Status: Acute Plan: Blood culture positive for Staph hominis -On oral Levaquin at this time (5) Diabetes Onset Date: 01/02/18 Current Visit: Yes Status: Chronic Plan: ISS and ACHS BS check Qualifiers: Diabetes mellitus type: type 2 Diabetes mellitus medical terminologist insulin use: without assisted use Diabetes mellitus complication status: without complication Qualified Code(s): E11.9 - Type 2 diabetes mellitus without complications (6) HTN (hypertension) Onset Date: 01/02/18 Current Visit: Yes Status: Chronic Plan: Restart Home medication Qualifiers: Hypertension type: essential hypertension Qualified Code(s): I10 - Essential (primary) hypertension (7) H/O: CVA (cerebrovascular accident) Current Visit: Yes Status: Chronic - Plan Pending had CT and MRI this morning. Patient currently pending placement at this time. Denied for SNF, family deciding on Placement at this time. Discharge Plan: Other Plan to discharge in: 48 Hours - Code Status/Comfort Care Code Status Assessed: Yes Critical Care: No
--- NOTE | 2018-01-11 15:00 | RAD REPORT ---
EXAM DESCRIPTION: CT - Soft Tissue Neck Wo Contr - 01/11/2018 2:32 pm CLINICAL HISTORY: Possible esophageal or airway obstruction TECHNIQUE: Axial 3 millimeter thick images of the neck were obtained without IV contrast. All CT scans are performed using dose optimization technique as appropriate and may include automated exposure control or mA/KV adjustment according to patient size. FINDINGS: Intracranial portion the examination shows atrophy and chronic ischemic change. Ventricula r size is in proportion. An acute intracranial finding is not suspected. No globe or orbital content abnormality. Mastoid air cells are clear. There is patchy mucosal thickening in the paranasal sinuses and very minimal air-fluid level in the left maxillary sinus. Advanced cervical spine degenerative changes are present. No acute or destructive finding. There is s ignificant C4-5, C5-6 and C6-7 disc space narrowing. Bony foraminal encroachment present at these lev els. There is slight subluxation of C3 on C4, degenerative in origin. Soft tissue assessment is limited somewhat due to the flexed and kyphotic positioning of the patient. There are very dense arterial tree calcifications. Parotid, submandibular and thyroid gland tissue show no significant findings on noncontrast imaging. Patient has a very large and dominant right jugular vein. In the neck soft tissues no large mass or l ymphadenopathy seen. No mass or foreign body in the subglottic airway. No pharyngeal, tonsillar or tongue base mass identi fiable. From origin to the aortic arch level no esophageal wall thickening or mass. No retained pill or foreign body in the esophagus identifiable on this examination. IMPRESSION: No pill or other foreign body identifiable in the esophagus from origin to aortic arch l evel. No mass, foreign body or other abnormality within the imaged airway. No suspicious mass or lymphadenopathy in the soft tissues. Advanced bony degenerative and disc change. Advanced arterial tree calcifications.
[2018-01-11] MEDS: Levofloxacin500mg IV 500 MG/100 ML BAG IV SCH (18:13)
[2018-01-11] MEDS: CEFTRIAXONE/SWI 1gm 1 GM/10 ML SYR IVP SCH (19:17)
[2018-01-12] MEDS: INSULIN -REGULAR HUMAN 50 UNIT/0.5 ML ML SQ SCH ×4 (07:30→21:00)
[2018-01-12 08:06] LABS: Magnesium 2.4 mg/dL (1.8-2.4); Phosphorus 2.6 mg/dL (2.5-4.9); Potassium 3.8 mmol/L (3.5-5.1)
[2018-01-12] MEDS: VITAMIN D 400 UNIT TAB PO SCH ×2 (09:00→21:50)
[2018-01-12] MEDS: FOLIC ACID 1 MG TABLET PO SCH (09:00)
[2018-01-12] MEDS: LORATADINE 10 MG TAB PO SCH (09:00)
[2018-01-12] MEDS: AMLODIPINE 5 MG TAB PO SCH (09:00)
[2018-01-12] MEDS: ISOSORBIDE MONO SR 60 MG TAB PO SCH (09:00)
[2018-01-12] MEDS: ASPIRIN 81 MG CHEWABLE TABLET PO SCH (09:00)
[2018-01-12] MEDS: CEFTRIAXONE/SWI 1gm 1 GM/10 ML SYR IVP SCH (09:00)
[2018-01-12] MEDS: ENSURE ENLIVE 237 ML CAN PO SCH ×2 (09:00→21:00)
[2018-01-12] MEDS: LOSARTAN POTASSIUM 50 MG TABLET PO SCH (09:00)
[2018-01-12] MEDS: POTASSIUM CL SA 10 MEQ TAB PO SCH (09:00)
[2018-01-12] MEDS: CLOPIDOGREL 75 MG TABLET PO SCH (10:36)
[2018-01-12] MEDS: METOPROLOL XL 50 MG TAB PO SCH ×3 (10:36→21:50)
--- NOTE | 2018-01-12 13:42 | P.PN ---
Subjective Date of Service: 01/12/18 Primary Care Provider: PCP in [facility] - Dr Luna Chief Complaint: AMS Patient seen and examined with RN. Chart reviewed. Case discussed with neurology and family at bedside. Overnight patient has been doing well. This morning patient seems to be more alert than usual. Was able to swallow his breakfast this morning Review of Systems 10-point ROS is otherwise unremarkable Physical Examination - Vital Signs Temperature: 97.4 F Blood Pressure: 127/62 Pulse: 73 Respirations: 18 Pulse Ox (%): 98 - Physical Exam General: Alert, In no apparent distress, Oriented x1, Confused HEENT: Atraumatic, PERRLA, EOMI Neck: Supple, JVD not distended Respiratory: Clear to auscultation bilaterally, Normal air movement Cardiovascular: Regular rate/rhythm, Normal S1 S2 Gastrointestinal: Normal bowel sounds, No tenderness Musculoskeletal: No tenderness Integumentary: No rashes Neurological: Normal speech, Normal tone, Normal affect Lymphatics: No axilla or inguinal lymphadenopathy - Studies Medications List Reviewed: Yes Assessment And Plan - Current Problems (Diagnosis) (1) Altered mental status Onset Date: 01/02/18 Current Visit: Yes Status: Acute Plan: AMS most likely 2.2 to Toxic Encephalopathy vs acute CVA -Currently AAOX 1 but with confusion and not able to follow commands. -improvement today significantly than his past hospital days. -will have him work with physical therapy 1 more time to see if he can follow commands Qualifiers: Altered mental status type: disorientation Qualified Code(s): R41.0 - Disorientation, unspecified (2) Acute CVA (cerebrovascular accident) Current Visit: Yes Status: Acute Plan: Acute right sided temporal lobe infarct. -neurology consulted appreciated recommendations this time -head CT negative in the ER. MRI consistent with right-sided temporal lobe infarct -currently on aspirin, Plavix and statin -PT speech OT consulted at this time -Head CT and MRI repeated today which were negative for any acute changes to the previous CVA (3) Bacteremia Current Visit: Yes Status: Acute Plan: Blood culture positive for Staph hominis -On IV Levaquin at this time (4) UTI (urinary tract infection) Onset Date: 01/02/18 Current Visit: Yes Status: Acute Plan: UA with UTI -Culture + for ECOLI -on IV Rocephin at this time Qualifiers: Urinary tract infection type: acute cystitis Hematuria presence: without hematuria Qualified Code(s): N30.00 - Acute cystitis without hematuria (5) Diabetes Onset Date: 01/02/18 Current Visit: Yes Status: Chronic Plan: ISS and ACHS BS check Qualifiers: Diabetes mellitus type: type 2 Diabetes mellitus distance learning coordinator insulin use: without longterm use Diabetes mellitus complication status: without complication Qualified Code(s): E11.9 - Type 2 diabetes mellitus without complications (6) HTN (hypertension) Onset Date: 01/02/18 Current Visit: Yes Status: Chronic Plan: Restart Home medication Qualifiers: Hypertension type: essential hypertension Qualified Code(s): I10 - Essential (primary) hypertension - Plan The patient is currently pending placement now. He is able to swallow. Will get a modified barium swallow to confirm. Discharge Plan: Other Plan to discharge in: 72 Hours - Code Status/Comfort Care Code Status Assessed: Yes Critical Care: No
--- NOTE | 2018-01-12 15:24 | RAD REPORT ---
EXAM DESCRIPTION: RAD - Barium Swallow Modified - 01/12/2018 3:17 pm CLINICAL HISTORY: CVA/dysphagia FINDINGS: fluro time 1:24 min 8 fluoroscopic spot series obtained moderate to significant delay with oral transit. Mild delay in swalow onset. No penetration or aspiration was observed with thin liquid or pureed bolus. Patient refused any additional boluses.
[2018-01-12] MEDS: Levofloxacin500mg IV 500 MG/100 ML BAG IV SCH (18:04)
[2018-01-12] MEDS: ATORVASTATIN 80 MG TAB PO SCH (21:49)
[2018-01-13] MEDS: INSULIN -REGULAR HUMAN 50 UNIT/0.5 ML ML SQ SCH ×4 (07:30→21:00)
[2018-01-13] MEDS: ENSURE ENLIVE 237 ML CAN PO SCH ×2 (09:00→21:00)
[2018-01-13] MEDS: CEFTRIAXONE/SWI 1gm 1 GM/10 ML SYR IVP SCH (10:01)
[2018-01-13] MEDS: METOPROLOL XL 50 MG TAB PO SCH ×2 (11:29→21:00)
[2018-01-13] MEDS: ASPIRIN 81 MG CHEWABLE TABLET PO SCH (11:30)
[2018-01-13] MEDS: AMLODIPINE 5 MG TAB PO SCH (11:30)
[2018-01-13] MEDS: FOLIC ACID 1 MG TABLET PO SCH (11:30)
[2018-01-13] MEDS: LORATADINE 10 MG TAB PO SCH (11:30)
[2018-01-13] MEDS: LOSARTAN POTASSIUM 50 MG TABLET PO SCH (11:31)
[2018-01-13] MEDS: CLOPIDOGREL 75 MG TABLET PO SCH (11:31)
[2018-01-13] MEDS: POTASSIUM CL SA 10 MEQ TAB PO SCH (11:31)
[2018-01-13] MEDS: D5W 1,000 ML IV SCH (11:32)
[2018-01-13] MEDS: VITAMIN D 400 UNIT TAB PO SCH ×2 (11:46→21:00)
[2018-01-13] MEDS: ISOSORBIDE MONO SR 60 MG TAB PO SCH (11:46)
--- NOTE | 2018-01-13 11:53 | P.PN ---
Subjective Date of Service: 01/13/18 Primary Care Provider: PCP in [facility] - Dr Luna Chief Complaint: AMS Patient seen and examined with RN. Chart reviewed. Case discussed with neurology and family at bedside. Overnight patient has been doing well. MBS done yesterday. Doing well. Family Applied Discharge, However no Discharge order placed. Review of Systems 10-point ROS is otherwise unremarkable Physical Examination - Vital Signs Temperature: 97.9 F Blood Pressure: 160/69 Pulse: 63 Respirations: 16 Pulse Ox (%): 98 - Physical Exam General: Alert, In no apparent distress, Confused HEENT: Atraumatic, PERRLA, EOMI Neck: Supple, JVD not distended Respiratory: Clear to auscultation bilaterally, Normal air movement Cardiovascular: Regular rate/rhythm, Normal S1 S2 Gastrointestinal: Normal bowel sounds, No tenderness Musculoskeletal: No tenderness Integumentary: No rashes Neurological: Normal speech, Normal tone, Normal affect Lymphatics: No axilla or inguinal lymphadenopathy - Studies Medications List Reviewed: Yes Assessment And Plan - Current Problems (Diagnosis) (1) Altered mental status Onset Date: 01/02/18 Current Visit: Yes Status: Acute Plan: AMS most likely 2.2 to Toxic Encephalopathy vs acute CVA -Currently AAOX 1 but with confusion and not able to follow commands. -improvement today however, still not able to follow commands to work with PT and Speech therapy -This is Patient new baseline given his Acute Stroke Qualifiers: Altered mental status type: disorientation Qualified Code(s): R41.0 - Disorientation, unspecified (2) Acute CVA (cerebrovascular accident) Current Visit: Yes Status: Acute Plan: Acute right sided temporal lobe infarct. -neurology consulted appreciated recommendations this time -head CT negative in the ER. MRI consistent with right-sided temporal lobe infarct -currently on aspirin, Plavix and statin -PT speech OT consulted at this time -Head CT and MRI which were negative for any acute changes to the previous CVA (3) Bacteremia Current Visit: Yes Status: Acute Plan: Blood culture positive for Staph hominis -On IV Levaquin at this time (4) UTI (urinary tract infection) Onset Date: 01/02/18 Current Visit: Yes Status: Acute Plan: UA with UTI -Culture + for ECOLI -on IV Rocephin at this time Qualifiers: Urinary tract infection type: acute cystitis Hematuria presence: without hematuria Qualified Code(s): N30.00 - Acute cystitis without hematuria (5) Diabetes Onset Date: 01/02/18 Current Visit: Yes Status: Chronic Plan: ISS and ACHS BS check Qualifiers: Diabetes mellitus type: type 2 Diabetes mellitus fdc insulin use: without supervisor beehive kiln use Diabetes mellitus complication status: without complication Qualified Code(s): E11.9 - Type 2 diabetes mellitus without complications (6) HTN (hypertension) Onset Date: 01/02/18 Current Visit: Yes Status: Chronic Plan: Restart Home medication Qualifiers: Hypertension type: essential hypertension Qualified Code(s): I10 - Essential (primary) hypertension - Plan The patient is currently pending placement now. He is able to swallow. Not able to Follow commands however to participate in therapy. Discharge Plan: Other Plan to discharge in: 72 Hours - Code Status/Comfort Care Code Status Assessed: Yes Critical Care: No
[2018-01-13] MEDS: Levofloxacin500mg IV 500 MG/100 ML BAG IV SCH (17:00)
[2018-01-13] MEDS: ATORVASTATIN 80 MG TAB PO SCH (21:00)
[2018-01-14] MEDS: D5W 1,000 ML IV SCH (06:16)
[2018-01-14] MEDS: INSULIN -REGULAR HUMAN 50 UNIT/0.5 ML ML SQ SCH ×4 (07:30→21:00)
[2018-01-14] MEDS: ASPIRIN 81 MG CHEWABLE TABLET PO SCH ×2 (09:00→12:39)
[2018-01-14] MEDS: VITAMIN D 400 UNIT TAB PO SCH ×2 (09:00→21:47)
[2018-01-14] MEDS: FOLIC ACID 1 MG TABLET PO SCH ×2 (09:00→12:43)
[2018-01-14] MEDS: METOPROLOL XL 50 MG TAB PO SCH ×2 (09:00→21:43)
[2018-01-14] MEDS: LOSARTAN POTASSIUM 50 MG TABLET PO SCH ×2 (09:00→12:41)
[2018-01-14] MEDS: ISOSORBIDE MONO SR 60 MG TAB PO SCH ×2 (09:00→12:45)
[2018-01-14] MEDS: ENSURE ENLIVE 237 ML CAN PO SCH ×2 (09:00→21:00)
[2018-01-14] MEDS: LORATADINE 10 MG TAB PO SCH ×2 (09:00→12:39)
[2018-01-14] MEDS: CLOPIDOGREL 75 MG TABLET PO SCH ×2 (09:00→12:44)
[2018-01-14] MEDS: POTASSIUM CL SA 10 MEQ TAB PO SCH ×2 (09:00→12:44)
[2018-01-14] MEDS: AMLODIPINE 5 MG TAB PO SCH ×2 (09:00→12:42)
[2018-01-14] MEDS: CEFTRIAXONE/SWI 1gm 1 GM/10 ML SYR IVP SCH (10:35)
--- NOTE | 2018-01-14 14:02 | P.PN ---
Subjective Date of Service: 01/14/18 Primary Care Provider: PCP in [facility] - Dr Luna Chief Complaint: AMS Patient seen and examined with RN. Chart reviewed. Case discussed with neurology and family at bedside. Overnight patient has been doing well. MBS done yesterday. Doing well. Family Applied Discharge, However no Discharge order placed. Review of Systems 10-point ROS is otherwise unremarkable Physical Examination - Vital Signs Temperature: 97.9 F Blood Pressure: 155/84 Pulse: 61 Respirations: 16 Pulse Ox (%): 98 - Physical Exam General: Alert, In no apparent distress, Confused HEENT: Atraumatic, PERRLA, EOMI Neck: Supple, JVD not distended Respiratory: Clear to auscultation bilaterally, Normal air movement Cardiovascular: Regular rate/rhythm, Normal S1 S2 Gastrointestinal: Normal bowel sounds, No tenderness Musculoskeletal: No tenderness Integumentary: No rashes Neurological: Normal speech, Normal tone, Normal affect Lymphatics: No axilla or inguinal lymphadenopathy - Studies Medications List Reviewed: Yes Assessment And Plan - Current Problems (Diagnosis) (1) Altered mental status Onset Date: 01/02/18 Current Visit: Yes Status: Acute Plan: AMS most likely 2.2 to Toxic Encephalopathy vs acute CVA -Currently AAOX 1 but with confusion and not able to follow commands. -improvement today however, still not able to follow commands to work with PT and Speech therapy -This is Patient new baseline given his Acute Stroke Qualifiers: Altered mental status type: disorientation Qualified Code(s): R41.0 - Disorientation, unspecified (2) Acute CVA (cerebrovascular accident) Current Visit: Yes Status: Acute Plan: Acute right sided temporal lobe infarct. -neurology consulted appreciated recommendations this time -head CT negative in the ER. MRI consistent with right-sided temporal lobe infarct -currently on aspirin, Plavix and statin -PT speech OT consulted at this time -Head CT and MRI which were negative for any acute changes to the previous CVA (3) Bacteremia Current Visit: Yes Status: Acute Plan: Blood culture positive for Staph hominis -On IV Levaquin at this time (4) UTI (urinary tract infection) Onset Date: 01/02/18 Current Visit: Yes Status: Acute Plan: UA with UTI -Culture + for ECOLI -on IV Rocephin at this time Qualifiers: Urinary tract infection type: acute cystitis Hematuria presence: without hematuria Qualified Code(s): N30.00 - Acute cystitis without hematuria (5) Diabetes Onset Date: 01/02/18 Current Visit: Yes Status: Chronic Plan: ISS and ACHS BS check Qualifiers: Diabetes mellitus type: type 2 Diabetes mellitus termite control servicer insulin use: without termite control servicer use Diabetes mellitus complication status: without complication Qualified Code(s): E11.9 - Type 2 diabetes mellitus without complications (6) HTN (hypertension) Onset Date: 01/02/18 Current Visit: Yes Status: Chronic Plan: Restart Home medication Qualifiers: Hypertension type: essential hypertension Qualified Code(s): I10 - Essential (primary) hypertension - Plan The patient is currently pending placement now. He is able to swallow. Not able to Follow commands however to participate in therapy. Physician Review Additional Text: Impression: Altered mental status/aphasia secondary to toxic dvqafxygpfnrom-[id number] culture positive for E coli/bacteremia-blood culture positive for Staph hominis and 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, significant arthrosclerotic changes and luminal narrowing in the distal right internal carotid artery and left middle cerebral artery Hypertension Diabetes mellitus type 2, jnt-bobvhqn-woazhqhnf, A1c 4.7 Hyperlipidemia CAD Anemia Plan: Altered mental status/aphasia secondary to toxic ibnatllweogpzv-YKY-wwccy culture positive for E coli/bacteremia-blood culture positive for Staph hominis and 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 Patient on DVT prophylaxis-Lovenox. Encourage ambulation with physical therapy and occupational therapy. Patient needs to be more alert and requires arousal. Family has helped with this. Currently awaiting approval for jail facility placement. Neurology agrees with plan of care. Antibiotics have been adjusted due to urine culture positive for E coli and blood culture positive for Staph hominis. Will continue with Bactrim DS 1 pill twice daily for total of 7 days and Levaquin 500 mg daily for total of 14 days. Will monitor closely. Hypertension: Continue with medications-Norvasc 5 mg daily, losartan 100 mg 1 pill daily, and metoprolol 50 mg 1 pill twice daily. Will maintain blood pressure around 150-160 systolic. May need to hold medication. Adjustment in medication may be required at discharge. Will monitor and adjust appropriately. Diabetes mellitus type 2, ggx-ybapmyr-bhmnpogta, A1c 4.7: Will continue with sliding scale. Patient may not require any medication at discharge. Hyperlipidemia: Continue with Lipitor 80 mg daily CAD: Currently on Imdur. Anemia: Mild, likely dilutional. Will monitor closely. I will turn the service over to Dr. Tai tomorrow. I will go over the plan of care with her.
[2018-01-14] MEDS: Levofloxacin500mg IV 500 MG/100 ML BAG IV SCH (17:49)
[2018-01-14] MEDS: ATORVASTATIN 80 MG TAB PO SCH (21:48)
[2018-01-15] MEDS: D5W 1,000 ML IV SCH (04:05)
[2018-01-15 06:38] LABS: Potassium 3.6 mmol/L (3.5-5.1)
[2018-01-15] MEDS: INSULIN -REGULAR HUMAN 50 UNIT/0.5 ML ML SQ SCH ×4 (07:30→21:00)
[2018-01-15] MEDS ORDERED: KCL 20 MEQ/100 mL IVPB 20 MEQ/100 ML BAG IV SCH (09:00)
[2018-01-15] MEDS: ENSURE ENLIVE 237 ML CAN PO SCH ×2 (09:00→21:00)
[2018-01-15] MEDS ORDERED: POTASSIUM 25 MEQ EFFERV TAB PO ONE (09:27)
[2018-01-15] MEDS: CEFTRIAXONE/SWI 1gm 1 GM/10 ML SYR IVP SCH (09:41)
[2018-01-15] MEDS: ASPIRIN 81 MG CHEWABLE TABLET PO SCH (11:10)
[2018-01-15] MEDS: CLOPIDOGREL 75 MG TABLET PO SCH (11:10)
[2018-01-15] MEDS: VITAMIN D 400 UNIT TAB PO SCH ×2 (11:10→20:57)
[2018-01-15] MEDS: FOLIC ACID 1 MG TABLET PO SCH (11:10)
[2018-01-15] MEDS: LORATADINE 10 MG TAB PO SCH (11:10)
[2018-01-15] MEDS: POTASSIUM CL SA 10 MEQ TAB PO SCH (11:11)
[2018-01-15] MEDS: AMLODIPINE 5 MG TAB PO SCH (11:11)
[2018-01-15] MEDS: ISOSORBIDE MONO SR 60 MG TAB PO SCH (11:11)
[2018-01-15] MEDS: METOPROLOL XL 50 MG TAB PO SCH ×2 (11:11→21:00)
[2018-01-15] MEDS: LOSARTAN POTASSIUM 50 MG TABLET PO SCH (11:12)
--- NOTE | 2018-01-15 11:20 | P.PN ---
Subjective Date of Service: 01/15/18 Primary Care Provider: PCP in [facility] - Dr Luna Chief Complaint: AMS Patient seen and examined with RN. Chart reviewed. Case discussed with neurology and family at bedside. Overnight patient has been doing well. Patient is alert and Eats Intermittently. family applied DC and medicare in Agreement. Family deciding placement at this time. Review of Systems 10-point ROS is otherwise unremarkable Physical Examination - Vital Signs Temperature: 98.2 F Blood Pressure: 169/80 Pulse: 72 Respirations: 18 Pulse Ox (%): 100 - Physical Exam General: Alert, In no apparent distress, Confused (Intermittent ) HEENT: Atraumatic, PERRLA, EOMI Neck: Supple, JVD not distended Respiratory: Clear to auscultation bilaterally, Normal air movement Cardiovascular: Regular rate/rhythm, Normal S1 S2 Gastrointestinal: Normal bowel sounds, No tenderness Musculoskeletal: No tenderness Integumentary: No rashes Neurological: Normal speech, Normal tone, Normal affect Lymphatics: No axilla or inguinal lymphadenopathy - Studies Medications List Reviewed: Yes Assessment And Plan - Current Problems (Diagnosis) (1) Altered mental status Onset Date: 01/02/18 Current Visit: Yes Status: Acute Plan: AMS most likely 2.2 to Toxic Encephalopathy vs acute CVA -Currently AAOX 1 but with Intermittent confusion and is not able to follow commands at times. -Improvement today however, still not able to follow commands to work with PT and Speech therapy -This is Patient new baseline given his Acute Stroke Qualifiers: Altered mental status type: disorientation Qualified Code(s): R41.0 - Disorientation, unspecified (2) Acute CVA (cerebrovascular accident) Current Visit: Yes Status: Acute Plan: Acute right sided temporal lobe infarct. -neurology consulted appreciated recommendations this time -head CT negative in the ER. MRI consistent with right-sided temporal lobe infarct -currently on aspirin, Plavix and statin -PT speech OT consulted at this time (3) Bacteremia Current Visit: Yes Status: Acute Plan: Blood culture positive for Staph hominis -On IV Levaquin at this time -Once Patient able to Take PO then Will switch to PO levaquin (4) UTI (urinary tract infection) Onset Date: 01/02/18 Current Visit: Yes Status: Acute Plan: UA with UTI -Culture + for ECOLI -on IV Rocephin at this time -Will Switch to PO once take PO intake Qualifiers: Urinary tract infection type: acute cystitis Hematuria presence: without hematuria Qualified Code(s): N30.00 - Acute cystitis without hematuria (5) Diabetes Onset Date: 01/02/18 Current Visit: Yes Status: Chronic Plan: ISS and ACHS BS check Qualifiers: Diabetes mellitus type: type 2 Diabetes mellitus intermodal customer service insulin use: without intermodal customer service use Diabetes mellitus complication status: without complication Qualified Code(s): E11.9 - Type 2 diabetes mellitus without complications (6) HTN (hypertension) Onset Date: 01/02/18 Current Visit: Yes Status: Chronic Plan: Restart Home medication Qualifiers: Hypertension type: essential hypertension Qualified Code(s): I10 - Essential (primary) hypertension - Plan The patient is currently pending placement now. He is able to swallow intermittently. Not able to Follow commands however to participate in therapy. Discharge Plan: Other Plan to discharge in: 48 Hours - Code Status/Comfort Care Code Status Assessed: Yes Critical Care: No
[2018-01-15] MEDS: Levofloxacin500mg IV 500 MG/100 ML BAG IV SCH (17:13)
[2018-01-15] MEDS: ATORVASTATIN 80 MG TAB PO SCH (20:57)
[2018-01-15] MEDS: DOCUSATE NA 100 MG CAP PO SCH (20:57)
[2018-01-16] MEDS: D5W 1,000 ML IV SCH ×2 (04:08→17:17)
[2018-01-16 07:06] LABS: Potassium 4.4 mmol/L (3.5-5.1)
[2018-01-16] MEDS: INSULIN -REGULAR HUMAN 50 UNIT/0.5 ML ML SQ SCH ×4 (07:30→22:38)
[2018-01-16] MEDS: LOSARTAN POTASSIUM 50 MG TABLET PO SCH (08:50)
[2018-01-16] MEDS: AMLODIPINE 5 MG TAB PO SCH (08:51)
[2018-01-16] MEDS: METOPROLOL XL 50 MG TAB PO SCH ×2 (08:51→21:00)
[2018-01-16] MEDS: CEFTRIAXONE/SWI 1gm 1 GM/10 ML SYR IVP SCH (09:00)
[2018-01-16] MEDS: DOCUSATE NA 100 MG CAP PO SCH ×2 (09:00→21:00)
[2018-01-16] MEDS: ASPIRIN 81 MG CHEWABLE TABLET PO SCH (09:39)
[2018-01-16] MEDS: POTASSIUM CL SA 10 MEQ TAB PO SCH (09:39)
[2018-01-16] MEDS: FOLIC ACID 1 MG TABLET PO SCH (09:41)
[2018-01-16] MEDS: LORATADINE 10 MG TAB PO SCH (09:41)
[2018-01-16] MEDS: ENSURE ENLIVE 237 ML CAN PO SCH ×2 (09:41→22:37)
[2018-01-16] MEDS: CLOPIDOGREL 75 MG TABLET PO SCH (09:41)
[2018-01-16] MEDS: VITAMIN D 400 UNIT TAB PO SCH ×3 (09:42→22:36)
[2018-01-16] MEDS: ISOSORBIDE MONO SR 60 MG TAB PO SCH (09:42)
--- NOTE | 2018-01-16 13:56 | EKG ---
Test Date: 2018-01-15 Test Time: 21:17:49 Airborne And Air Delivery Specialist: RT MEASUREMENT RESULTS: Intervals: Rate: 92 MO: QRSD: 86 QT: 402 QTc: 497 [place]: P: MO: QRS: 128 T: 110 INTERPRETIVE STATEMENTS: Accelerated Junctional rhythm Left posterior fascicular block Increased R/S ratio in V1, consider early transition or posterior infarct Abnormal ECG No previous ECG available for comparison Electronically Signed On 01-16-18 13:53:25 CDT by Destin Guzman
[2018-01-16] MEDS: Levofloxacin500mg IV 500 MG/100 ML BAG IV SCH (16:46)
[2018-01-16] MEDS: ENOXAPARIN 40 MG/0.4 ML SQ SCH (16:46)
--- NOTE | 2018-01-16 20:00 | PN ---
Date of Progress Note: 01/16/2018 Subjective: The patient seen and examined. Chart reviewed and case discussed with RN. No family at the bedside. The patient otherwise not very cooperative with history taking and physical exam due to his mental status after stroke. The patient apparently had been refusing his OT and PT as well. Review of Systems: Limited due to the patient's medical condition. Medications: List reviewed. Code Status: Full. Physical Examination: Vital Signs: Temperature 98.6, heart rate 78, blood pressure 105/70, respirations 18, O2 100% on room air. General: Awake, alert, oriented to self only, elderly male, somewhat ill appearing. CV: S1 and S2. Regular rate and rhythm. Pulses present. Respiratory: Moving air well bilaterally. No wheezing. Some diminished breath sounds at the bases, otherwise moving air well. Gastrointestinal: Abdomen is soft, nontender, nondistended. Positive bowel sounds. Extremities: No clubbing, cyanosis, or edema. Neuro: Normal speech and tone. Moving all 4 extremities except left upper extremity unable to properly assess. However, when lifted up, does not follow with his force. Laboratory Data: Sodium 135, potassium 4.4, chloride 100, CO2 26, BUN 22, creatinine 1.2, glucose 98, calcium 8.4, glucose 137. Urine culture showing E. coli. Blood culture showing Staph hominis, 4/4 bottles. Assessment And Plan: An 82-year-old male with: 1. Acute metabolic encephalopathy, likely secondary to acute CVA versus toxic encephalopathy. The patient had some intermittent confusion and follows commands at times. Otherwise, does not follow any commands. Has been working with PT and OT, however, refused to work with the PT yesterday. Appears to be his baseline, status post his stroke. 2. Acute CVA, right-sided, with temporal lobe infarct. Workup has been completed. MRI shows right-sided temporal lobe infarct on aspirin, Plavix, and statin. He continue PT, speech therapy, and occupational therapy. Carotid ultrasound also done shows bilateral bilateral ICA calcified and noncalcified plaquing changes. No significant degree of stenosis. Echocardiogram shows EF grossly normal function of left ventricle. No other abnormalities. 3. Bacteremia positive for Staph hominis. We will continue IV medications for now and switch to p.o. once tolerating p.o. diet. 4. Acute cystitis without hematuria secondary to Escherichia coli sensitivities reviewed. Continue antibiotics for now, on Rocephin, switch to p.o. once able to tolerate p.o. intake. 5. Diabetes mellitus type 2 without obvious long-term use of insulin with hyperglycemia. We will continue sliding scale insulin and BBG, Accu-Cheks. 6. Essential hypertension. The patient is now out of the 72-hour window post CVA. We will resume home medications as appropriate. 7. Hypocalcemia. Replace and monitor. Plan: The patient unable to be discharged home. He is not safe, pending placement for now. We will continue to have PT, OT, and ST work with the patient to improve his status. Likely discharge in the next 48 to 72 hours. Case Management and social workers working on discharge planning. We will call family for further clarification of plans. RUTH Voice ID: [id number] Report ID: [id number] MELANY
[2018-01-16] MEDS: ATORVASTATIN 80 MG TAB PO SCH ×2 (21:00→22:36)
[2018-01-16] MEDS: ACETAMINOPHEN 500 MG TAB PO PRN (22:45)
[2018-01-17] MEDS: D5W 1,000 ML IV SCH ×2 (03:37→20:41)
[2018-01-17 04:45] LABS: Absolute Lymphocytes (CBC) 1.5 K/uL (0.7-4.9); Absolute Monocytes 0.6 K/uL (0.1-1.3); Absolute Neutrophil 2.6 K/uL (1.8-8.0); Basophils % 0.8 % (0-1.3); Eosinophils % 3.3 % (0-4.4); Hematocrit 30.6 % (39.6-49.0); Lymphocytes % 30.5 % (15.3-44.8); MCH 29.9 pg (27.0-35.0); MCV 87.7 fL (80-100); MPV 11.4 fL (7.6-11.3); Monocytes % 11.5 % (3.3-12.3); RBC Red Blood Cell Count 3.48 M/uL (4.33-5.43)
[2018-01-17 05:04] LABS: Potassium 4.2 mmol/L (3.5-5.1)
[2018-01-17 06:21] LABS: Magnesium 1.9 mg/dL (1.8-2.4); Phosphorus 2.9 mg/dL (2.5-4.9)
[2018-01-17] MEDS: INSULIN -REGULAR HUMAN 50 UNIT/0.5 ML ML SQ SCH ×4 (07:30→21:00)
[2018-01-17] MEDS: AMLODIPINE 5 MG TAB PO SCH (09:00)
[2018-01-17] MEDS: DOCUSATE NA 100 MG CAP PO SCH ×2 (09:00→20:41)
[2018-01-17] MEDS: METOPROLOL XL 50 MG TAB PO SCH ×2 (09:00→21:00)
[2018-01-17] MEDS: LOSARTAN POTASSIUM 50 MG TABLET PO SCH (09:00)
[2018-01-17] MEDS: ENSURE ENLIVE 237 ML CAN PO SCH ×2 (09:00→20:40)
[2018-01-17] MEDS: ISOSORBIDE MONO SR 60 MG TAB PO SCH (09:33)
[2018-01-17] MEDS: VITAMIN D 400 UNIT TAB PO SCH ×2 (09:33→20:41)
[2018-01-17] MEDS: POTASSIUM CL SA 10 MEQ TAB PO SCH (09:33)
[2018-01-17] MEDS: CLOPIDOGREL 75 MG TABLET PO SCH (09:33)
[2018-01-17] MEDS: LORATADINE 10 MG TAB PO SCH (09:33)
[2018-01-17] MEDS: ASPIRIN 81 MG CHEWABLE TABLET PO SCH (09:33)
[2018-01-17] MEDS: FOLIC ACID 1 MG TABLET PO SCH (09:33)
[2018-01-17] MEDS: CEFTRIAXONE/SWI 1gm 1 GM/10 ML SYR IVP SCH (09:36)
[2018-01-17] MEDS: ENOXAPARIN 40 MG/0.4 ML SQ SCH (16:44)
--- NOTE | 2018-01-17 18:19 | PN ---
Date of Progress Note: 01/17/2018 History: The patient is seen and examined. Chart reviewed and case discussed with RN. Family at e bedside. We discussed options regarding placement. Review of Systems: Negative except as above. Medications: List reviewed. Physical Examination: Vital Signs: Temperature 98.6, heart rate 69, blood pressure 145/75, respirations 22, O2 96% on room air. General: Asleep, but arousable, elderly male. Oriented to self and place. CV: S1, S2. Peripheral pulses present. Respiratory: Moving air well bilaterally. No wheezing or stridor. Gastrointestinal: Abdomen is soft, nontender, nondistended. Positive bowel sounds. Extremities: No clubbing, cyanosis, or edema. Neuro: Moves all 4 extremities. Speech is normal. Laboratory Data: Sodium 136, potassium 4.2, chloride 102, CO2 29, BUN 22, creatinine 1.2, glucose 94 , calcium 8.6, phosphorus 2.9, magnesium 1.9. WBC 12.9, H and H 10.4 and 30.6, platelets 126, neutro phils 53%. Assessment And Plan: An 82-year-old male with: 1.Acute metabolic encephalopathy, likely due to his acute cerebrovascular accident versus toxic ence phalopathy, improving. Does have some intermittent confusion, but more alert during the afternoon ti me. Has been working with PT and OT. 2.Acute cerebrovascular accident, right-sided, with upper lobe infarct. MRI showing right-sided tem poral lobe infarct. Will continue on aspirin, Plavix, and statin. The patient is participating part ially in PT, speech therapy, and occupational therapy; however, does refuse to work with them at time s. Carotid ultrasound showed bilateral ICA calcified and noncalcified plaquing changes. No signific ant degree of stenosis. Echo showed normal ejection fraction. Grossly, no other abnormalities were seen, medically stable. 3.Bacteremia with Staphylococcus hominis. The patient has been treated with Levaquin for 14 days to michelle. We will discontinue Levaquin now. Repeat blood cultures. 4.Acute cystitis without hematuria secondary to Escherichia coli. We will switch Rocephin to p.o. a ntibiotics. 5.Diabetes mellitus type 2 with long-term use of insulin with hyperglycemia. Continue sliding scale insulin and continue Accu-Cheks. 6.Essential hypertension. We will continue to monitor closely and continue home medications. 7.Hypocalcemia. We will replace and monitor. 8.Gastrointestinal and deep venous thrombosis prophylaxis addressed. Plan: Discharge planning regarding placement. Spoke with family members who do wish to place the pa tient in SNF and likely will not be able to tolerate inpatient rehab as he is barely working with PT and OT here. If not accepted to a long-term facility, may need to go home with assistive ambulatory device. RUTH Voice ID: [id number] Report ID: [id number]
[2018-01-17] MEDS: CEFUROXIME 250 MG TAB PO SCH (20:39)
[2018-01-17] MEDS: ATORVASTATIN 80 MG TAB PO SCH (20:39)
[2018-01-18] MEDS: INSULIN -REGULAR HUMAN 50 UNIT/0.5 ML ML SQ SCH ×4 (07:30→21:00)
[2018-01-18] MEDS: ENSURE ENLIVE 237 ML CAN PO SCH ×2 (09:00→21:00)
[2018-01-18] MEDS: AMLODIPINE 5 MG TAB PO SCH (09:00)
[2018-01-18] MEDS: LOSARTAN POTASSIUM 50 MG TABLET PO SCH (09:00)
[2018-01-18] MEDS: METOPROLOL XL 50 MG TAB PO SCH ×2 (09:00→21:00)
[2018-01-18] MEDS: CEFUROXIME 250 MG TAB PO SCH ×2 (10:37→22:41)
[2018-01-18] MEDS: ASPIRIN 81 MG CHEWABLE TABLET PO SCH (10:37)
[2018-01-18] MEDS: POTASSIUM CL SA 10 MEQ TAB PO SCH (10:37)
[2018-01-18] MEDS: VITAMIN D 400 UNIT TAB PO SCH ×2 (10:37→21:00)
[2018-01-18] MEDS: FOLIC ACID 1 MG TABLET PO SCH (10:37)
[2018-01-18] MEDS: CLOPIDOGREL 75 MG TABLET PO SCH (10:37)
[2018-01-18] MEDS: DOCUSATE NA 100 MG CAP PO SCH ×2 (10:37→21:00)
[2018-01-18] MEDS: LORATADINE 10 MG TAB PO SCH (10:37)
[2018-01-18] MEDS: ISOSORBIDE MONO SR 60 MG TAB PO SCH (10:39)
[2018-01-18] MEDS: ENOXAPARIN 40 MG/0.4 ML SQ SCH (18:20)
--- NOTE | 2018-01-18 19:56 | PN ---
Date of Progress Note: 01/18/2018 Subjective: The patient is seen and examined. Chart reviewed and case discussed with RN. No family at the bedside at this time. No acute events overnight. Review of Systems: Negative except as above. Medications: List reviewed. Physical Examination: Vital Signs: Temperature 97.9, heart rate 96, blood pressure 114/82, respirations 18, O2 of 99% on r oom air. General: Awake, alert, and oriented x2. An elderly male, in no acute distress. CV: S1, S2. Peripheral pulses present. Respiratory: Moving air well bilaterally. No wheezing. Abdomen: Soft, nontender, nondistended. Positive bowel sounds. Extremities: No clubbing, cyanosis, edema. Neurologic: Nonfocal. Laboratory Data: Pending. Blood cultures growing Staph hominis, 4 out of 4 bottles. Urine culture growing E. coli. Assessment And Plan: An 82-year-old male with: 1.Acute metabolic encephalopathy, likely due to acute cerebrovascular accident versus toxic encephal opathy, improving. Seems to be his new baseline. He does have some morning confusion, however, more alert and awake during the afternoon. Minimal cooperation with PT and OT. 2.Acute cerebrovascular accident, right-sided, with temporal lobe infarct. MRI showing right-sided infarct. Continue aspirin, Plavix, and statin. Not really participating in PT other than sitting on the side of the bed. Occasionally refusing speech therapy and occupational therapy. Rest of the wo rkup for stroke has been completed without any gross abnormalities. 3.Bacteremia, secondary to Staphylococcus hominis. Treatment completed with Levaquin. We will repe at blood cultures to ensure clearance of bacteremia. 4.Acute cystitis without hematuria, secondary to Escherichia coli. Has been switched to p.o. antibi otics. We will continue to monitor. 5.Diabetes mellitus type 2 with long-term use of insulin with hyperglycemia. Continue sliding scale insulin and Accu-Cheks. 6.Essential hypertension, stable. Keep systolic less than 160. 7.Hypocalcemia. We will replace and monitor. 8.Gastrointestinal and deep venous thrombosis prophylaxis addressed. Plan: The patient is pending SNF placements, likely will receive denial as the patient is not quite working with Physical Therapy. He will likely go home with assistive ambulatory devices and home [facility]. RUTH Voice ID: [id number] Report ID: [id number]
[2018-01-18] MEDS: ATORVASTATIN 80 MG TAB PO SCH (21:00)
[2018-01-19] MEDS: D5W 1,000 ML IV SCH ×2 (00:15→10:32)
[2018-01-19 06:56] LABS: Magnesium 1.8 mg/dL (1.8-2.4); Potassium 4.2 mmol/L (3.5-5.1)
[2018-01-19] MEDS ORDERED: MAGNESIUM SULFATE 1 gm IVPB 1 GM/100 ML BAG IV ONE (07:23)
[2018-01-19] MEDS: INSULIN -REGULAR HUMAN 50 UNIT/0.5 ML ML SQ SCH ×4 (07:30→21:00)
[2018-01-19] MEDS: AMLODIPINE 5 MG TAB PO SCH (10:27)
[2018-01-19] MEDS: CLOPIDOGREL 75 MG TABLET PO SCH (10:27)
[2018-01-19] MEDS: LORATADINE 10 MG TAB PO SCH (10:27)
[2018-01-19] MEDS: VITAMIN D 400 UNIT TAB PO SCH ×2 (10:27→10:31)
[2018-01-19] MEDS: ASPIRIN 81 MG CHEWABLE TABLET PO SCH (10:27)
[2018-01-19] MEDS: POTASSIUM CL SA 10 MEQ TAB PO SCH (10:29)
[2018-01-19] MEDS: FOLIC ACID 1 MG TABLET PO SCH (10:29)
[2018-01-19] MEDS: ISOSORBIDE MONO SR 60 MG TAB PO SCH (10:30)
[2018-01-19] MEDS: DOCUSATE NA 100 MG CAP PO SCH ×2 (10:30→21:00)
[2018-01-19] MEDS: LOSARTAN POTASSIUM 50 MG TABLET PO SCH (10:30)
[2018-01-19] MEDS: METOPROLOL XL 50 MG TAB PO SCH ×2 (10:30→21:00)
[2018-01-19] MEDS: CEFUROXIME 250 MG TAB PO SCH ×2 (10:31→21:49)
[2018-01-19] MEDS: ENSURE ENLIVE 237 ML CAN PO SCH ×2 (10:45→21:00)
--- NOTE | 2018-01-19 16:54 | PN ---
Date of Progress Note: 01/19/2018 Subjective: The patient is seen and examined. Chart reviewed and case discussed with RN and Case Adelaida weaver. The patient is more alert today; however, not very cooperative with exam, stating that he is cold. Review of Systems: Limited due to the patient's medical condition. Medications: List reviewed. Physical Examination: Vital Signs: Temperature 97.1, heart rate 75, blood pressure 181/78, respirations 18, O2 100% on silvana m air. General: Awake, alert, and oriented to self, without any acute distress. Elderly male. CV: S1, S2. Peripheral pulses present. Regular rate and rhythm. Respiratory: Clear to auscultation bilaterally. No wheezing. Gastrointestinal: Abdomen is soft, nontender, nondistended. Positive bowel sounds. Extremities: No clubbing, cyanosis, or edema. Neuro: Nonfocal. Speech is normal. Laboratory Data: Potassium 4.2, magnesium 1.8. Urine culture growing E. coli. Blood cultures growi ng Staph hominis. Assessment And Plan: An 82-year-old male with: 1.Acute metabolic encephalopathy, improving, likely due to cerebrovascular accident or toxic encepha lopathy. Does have some intermittent stages of confusion, especially during the mornings, seems to b e his baseline at this moment. 2.Acute cerebrovascular accident, right-sided, with temporal lobe infarct. MRI showed right-sided i nfarct. We will continue aspirin, Plavix, and statin. Not working too well with PT or OT. Stroke w orkup completed. Appreciate Neurology input. 3.Bacteremia secondary to Staphylococcus hominis. Treatment completed with Levaquin. Repeat blood cultures pending to ensure clearance of bacteremia. 4.Acute cystitis without hematuria, secondary to Escherichia coli, on p.o. cephalosporin. 5.Diabetes mellitus type 2 with long-term use of insulin with hyperglycemia. Continue sliding scale insulin and Accu-Cheks. 6.Essential hypertension, stable. May need to add p.r.n. medications to keep systolic above 160. 7.Hypocalcemia. We will replace and monitor. 8.Gastrointestinal and deep venous thrombosis prophylaxis addressed. Plan: Pending SNF placement, is denied, will likely need to be transferred home as the patient is no t quite working aggressively with Physical Therapy. We will update family. SA/MODL Voice ID: [id number] Report ID: [id number]
[2018-01-19] MEDS: ENOXAPARIN 40 MG/0.4 ML SQ SCH (17:31)
[2018-01-19] MEDS: ATORVASTATIN 80 MG TAB PO SCH (21:00)
[2018-01-20] MEDS: INSULIN -REGULAR HUMAN 50 UNIT/0.5 ML ML SQ SCH ×4 (07:30→21:00)
[2018-01-20] MEDS: POTASSIUM CL SA 10 MEQ TAB PO SCH (08:44)
[2018-01-20] MEDS: ISOSORBIDE MONO SR 60 MG TAB PO SCH (08:44)
[2018-01-20] MEDS: CEFUROXIME 250 MG TAB PO SCH ×2 (08:44→22:19)
[2018-01-20] MEDS: DOCUSATE NA 100 MG CAP PO SCH ×2 (08:45→21:00)
[2018-01-20] MEDS: FOLIC ACID 1 MG TABLET PO SCH (08:45)
[2018-01-20] MEDS: VITAMIN D 400 UNIT TAB PO SCH ×2 (08:45→22:19)
[2018-01-20] MEDS: ENSURE ENLIVE 237 ML CAN PO SCH ×2 (08:46→22:22)
[2018-01-20] MEDS: METOPROLOL XL 50 MG TAB PO SCH ×2 (08:46→22:23)
[2018-01-20] MEDS: AMLODIPINE 5 MG TAB PO SCH (08:47)
[2018-01-20] MEDS: ASPIRIN 81 MG CHEWABLE TABLET PO SCH (08:48)
[2018-01-20] MEDS: LORATADINE 10 MG TAB PO SCH (08:48)
[2018-01-20] MEDS: CLOPIDOGREL 75 MG TABLET PO SCH (08:48)
[2018-01-20] MEDS: LOSARTAN POTASSIUM 50 MG TABLET PO SCH (08:48)
[2018-01-20] MEDS ORDERED: NITROGLYCERIN 0.4 MG/TAB SL PRN (12:35)
--- NOTE | 2018-01-20 13:55 | RAD REPORT ---
EXAM DESCRIPTION: Dina Single View01/20/2018 1:30 pm CLINICAL HISTORY: Chest pain COMPARISON: January 01, 2018 FINDINGS: The lungs appear clear of acute infiltrate. The heart is mildly enlarged. Calcified lung granulomas are seen Left hemidiaphragm remains elevated IMPRESSION: No acute abnormalities displayed
[2018-01-20] MEDS: ENOXAPARIN 40 MG/0.4 ML SQ SCH (16:25)
--- NOTE | 2018-01-20 16:31 | PN ---
Date of Progress Note: 01/20/2018 History: The patient is seen and examined. Chart reviewed and case discussed with RN. The patient is awake and alert, not in any acute distress. However, later in the afternoon, the patient did complain of some acute chest pain. Review of Systems: Negative except as above. Medications: List reviewed. Physical Examination: Vital Signs: Temperature 97.2, heart rate 71, blood pressure 166/83, respirations 18, O2 98% on room air. General: Awake, alert, oriented, no acute distress. Elderly male. CV: S1 and S2. Peripheral pulses present. Respiratory: Moving air well bilaterally. Gastrointestinal: Abdomen is soft, nontender, nondistended. Positive bowel sounds. Extremities: No clubbing, cyanosis, edema. Neuro: No focal. Laboratory Data: Glucose 84. Troponin level pending. Chest x-ray pending. Assessment And Plan: An 82-year-old male with: 1. Chest pain. We will obtain stat troponin level and EKG. Nitroglycerin p.r.n. We will get a chest x-ray and continue cardiac telemetry. 2. Acute metabolic encephalopathy secondary to cerebrovascular accident versus toxic encephalopathy, significantly improved. Seems to be back to baseline. Does have some [employer] confusion, however, as the day progresses, the patient's condition improves. 3. Acute cerebrovascular accident, right-sided temporal lobe infarct. Continue aspirin, Plavix, and statin. The patient is alert and cooperative with therapy. 4. Bacteremia secondary to Staphylococcus hominis. Treatment completed with Levaquin. Repeat blood cultures show no growth to date. 5. Acute cystitis without hematuria secondary to Escherichia coli on Ceftin p.o. We will repeat the urinalysis and likely discontinue antibiotics if urinalysis is negative. The patient has received treatment for 2 weeks. 6. Diabetes mellitus type 2, long-term use of insulin with hyperglycemia. We will continue sliding scale insulin and continue Accu-Cheks. 7. Essential hypertension, stable. 8. Hypocalcemia. Replace and monitor. 9. Gastrointestinal and deep venous thrombosis prophylaxis addressed. Plan: The patient is awaiting SNF. If referral to [facility] is denied, then will have to go to home. The patient has already had an appeal that was approved for discharge. Continue p.o. antibiotics. Encourage working with Physical Therapy and Occupational therapy. Discharge once accepted to [facility]. /BACILIO Voice ID: [id number] Report ID: [id number] MTDGina
[2018-01-20] MEDS: ATORVASTATIN 80 MG TAB PO SCH (22:19)
[2018-01-21] MEDS ORDERED: POLYETHYL GLY 3350 17 GM/DOSE PO PRN (02:40)
[2018-01-21 05:50] LABS: Phosphorus 2.9 mg/dL (2.5-4.9)
--- NOTE | 2018-01-21 06:09 | EKG ---
Test Date: 2018-01-20 Test Time: 12:28:03 Steward/Stewardess [employer]ist Class: RAMIN MEASUREMENT RESULTS: Intervals: Rate: 94 [place]: 162 QRSD: 90 QT: 360 QTc: 500 [place]: P: 62 [place]: 162 QRS: 53 T: 90 INTERPRETIVE STATEMENTS: Sinus rhythm with occasional premature ventricular complexe Nonspecific ST and T wave abnormality Abnormal ECG Compared to ECG 01/15/2018 21:17:49 Fusion complex(es) now present Ventricular premature complex(es) now present ST (T wave) deviation now present Electronically Signed On 01-21-18 10:22:09 POTLINE MONITOR by Lion Muse
[2018-01-21] MEDS: INSULIN -REGULAR HUMAN 50 UNIT/0.5 ML ML SQ SCH ×4 (07:30→21:00)
[2018-01-21] MEDS: LORATADINE 10 MG TAB PO SCH (10:23)
[2018-01-21] MEDS: ASPIRIN 81 MG CHEWABLE TABLET PO SCH (10:23)
[2018-01-21] MEDS: FOLIC ACID 1 MG TABLET PO SCH (10:23)
[2018-01-21] MEDS: CEFUROXIME 250 MG TAB PO SCH ×2 (10:23→21:00)
[2018-01-21] MEDS: VITAMIN D 400 UNIT TAB PO SCH ×2 (10:24→21:00)
[2018-01-21] MEDS: LOSARTAN POTASSIUM 50 MG TABLET PO SCH (10:24)
[2018-01-21] MEDS: AMLODIPINE 5 MG TAB PO SCH (10:27)
[2018-01-21] MEDS: ENSURE ENLIVE 237 ML CAN PO SCH ×2 (10:28→21:00)
[2018-01-21] MEDS: METOPROLOL XL 50 MG TAB PO SCH ×2 (10:28→21:00)
[2018-01-21] MEDS: CLOPIDOGREL 75 MG TABLET PO SCH (10:28)
[2018-01-21] MEDS: POTASSIUM CL SA 10 MEQ TAB PO SCH (10:28)
[2018-01-21] MEDS: ISOSORBIDE MONO SR 60 MG TAB PO SCH (10:28)
[2018-01-21] MEDS: DOCUSATE NA 100 MG CAP PO SCH ×2 (10:28→21:00)
[2018-01-21] MEDS: ENOXAPARIN 40 MG/0.4 ML SQ SCH (17:00)
[2018-01-21] MEDS: ATORVASTATIN 80 MG TAB PO SCH (21:00)
--- NOTE | 2018-01-21 21:26 | PN ---
Date of Progress Note: 01/21/2018 History: The patient is seen and examined. Chart reviewed and case discussed with RN. The patient denies any acute events overnight. Review of Systems: Negative except as above. Medications: List reviewed. Physical Examination: Vital Signs: Temperature 97.6, heart rate 67, blood pressure 121/64, respirations 21, O2 100% on silvana m air. General: Awake, alert, oriented x3. No acute distress. Elderly male. CV: S1 and S2. No murmurs. Respiratory: Moving air well bilaterally. No wheezing. Abdomen: Abdomen is soft, nontender, nondistended. Positive bowel sounds. Extremities: No clubbing, cyanosis, or edema. Neurologic: Nonfocal. Speech is normal. Laboratory Data: Sodium 138, potassium 4, chloride 103, CO2 28, BUN 22, creatinine 1.1, glucose 85, calcium 8.7. WBC 4.9, H and H are 10.4 and 30.6, platelets 126, neutrophils 53%. Urine culture, E c martina. Blood culture, Staph hominis. Repeat blood culture shows no growth. Assessment And Plan: An 82-year-old male with: 1.Chest pain, likely atypical. Troponin level and EKG were normal, resolved. We will continue to m onitor on cardiac telemetry. 2.Acute metabolic encephalopathy secondary to cerebrovascular accident, significantly improved, back to baseline. 3.Acute cerebrovascular accident, right-sided temporal lobe infarct. We will continue stroke guidel mica with aspirin, Plavix, and statin. Continue PT and OT. 4.Bacteremia secondary to Staphylococcus hominis. Treatment completed with Levaquin. Repeat cultur es. No growth to date. 5.Acute cystitis without hematuria secondary to Escherichia coli, on Ceftin p.o. Repeat UA and disc ontinued if UA is negative. 6.Diabetes mellitus type 2 with long-term use of insulin and hyperglycemia. We will continue slidin g scale insulin and continue Accu-Cheks. 7.Essential hypertension, stable. 8.Hypocalcemia. Replace and monitor. 9.Gastrointestinal and deep venous thrombosis prophylaxis addressed. Plan: Discharge to [facility] once accepted. /BACILIO Voice ID: [id number] Report ID: [id number]
[2018-01-22] MEDS: HYDRALAZINE HCL 20 MG/ML VIAL IV PRN (04:22)
[2018-01-22] MEDS: INSULIN -REGULAR HUMAN 50 UNIT/0.5 ML ML SQ SCH ×3 (07:30→16:30)
[2018-01-22] MEDS: ENSURE ENLIVE 237 ML CAN PO SCH (09:00)
[2018-01-22] MEDS: FOLIC ACID 1 MG TABLET PO SCH ×2 (09:00→13:26)
[2018-01-22] MEDS: LOSARTAN POTASSIUM 50 MG TABLET PO SCH ×2 (09:00→13:25)
[2018-01-22] MEDS: CLOPIDOGREL 75 MG TABLET PO SCH ×2 (09:00→13:26)
[2018-01-22] MEDS: DOCUSATE NA 100 MG CAP PO SCH ×2 (09:00→13:25)
[2018-01-22] MEDS: POTASSIUM CL SA 10 MEQ TAB PO SCH ×2 (09:00→13:26)
[2018-01-22] MEDS: ASPIRIN 81 MG CHEWABLE TABLET PO SCH ×2 (09:00→13:26)
[2018-01-22] MEDS: LORATADINE 10 MG TAB PO SCH ×2 (09:00→13:26)
[2018-01-22] MEDS: METOPROLOL XL 50 MG TAB PO SCH ×2 (09:00→13:25)
[2018-01-22] MEDS: VITAMIN D 400 UNIT TAB PO SCH ×2 (09:00→13:24)
[2018-01-22] MEDS: CEFUROXIME 250 MG TAB PO SCH ×2 (09:00→13:24)
[2018-01-22] MEDS: AMLODIPINE 5 MG TAB PO SCH ×2 (09:00→13:25)
[2018-01-22] MEDS: ISOSORBIDE MONO SR 60 MG TAB PO SCH (13:24)
[2018-01-22] MEDS: ENOXAPARIN 40 MG/0.4 ML SQ SCH (17:00)
== END 2018-01-22 19:00 | disposition home or self-care (01) | DRG 64 ==
LOC: ER 14:17 → ERHOLD 17:12 → 4TH 19:43
PROVIDERS: ADMIT Family Medicine; ATTEND Family Medicine
DX: I63.9 Cerebral infarction, unspecified (principal); G93.41 Metabolic encephalopathy; N39.0 Urinary tract infection, site not specified; N30.00 Acute cystitis without hematuria; R78.81 Bacteremia; I10 Essential (primary) hypertension; R47.01 Aphasia; R29.706 NIHSS score 6; E11.9 Type 2 diabetes mellitus without complications; B96.20 Unspecified Escherichia coli [E. coli] as the cause of diseases classified elsewhere; B95.8 Unspecified staphylococcus as the cause of diseases classified elsewhere; E83.51 Hypocalcemia; Z86.73 Personal history of transient ischemic attack (TIA), and cerebral infarction without residual deficits
CPT/HCPCS: 36415; 51702; 70450; 70490; 70544; 70549; 70551; 71045; 74230; 80048; 80053; 80061; 80076; 81003; 81015; 82306; 82550; 82553; 82607; 82962; 83036; 83605; 83690; 83735; 84100; 84132; 84145; 84443; 84484; 85025; 85610; 85730; 86592; 87040; 87077; 87086; 87088; 87186; 87205; 93005; 93306; 93880; 96365; 96366; 96375; 97163; 99285; A9577; J0360; J0696; J1650; J3370; J3475; J7030